=== PATIENT | male | born 1945 | race Caucasian/White ===

== ENCOUNTER 2018-12-28 18:24 | Inpatient (IN) | payer OTHER ==
--- OUTSIDE RECORDS SUMMARY | 2018-12-28 18:27 | XMS REPORT | Clinical Summary ---
:1945 Author Organization [facility] Address [address] [place] [address] Care Team Providers Name Role Phone Abram Gutierrez MD Primary Care Provider Allergies Active Allergy Reactions Severity Noted Date Comments Prednisone 11/29/2017 Medications Medication Sig Dispensed Refills Start Date End Date Status citalopram (CeleXA) Take 40 mg by 0 Active 40 MG tablet mouth daily. metroNIDAZOLE Apply topically 0 Active (METROCREAM) 0.75 % 2 (two) times a cream day. fluocinonide Apply topically 0 Active (LIDEX) 0.05 % 2 (two) times a cream day. cycloSPORINE 1 drop 2 (two) 0 Active (RESTASIS) 0.05 % times a day. ophthalmic emulsion artificial 1 drop 2 (two) 0 Active tears,hypromellose, times a day. (SYSTANE GEL) 0.3 % gel bimatoprost Administer 1 0 Active (LUMIGAN) 0.01 % drop to both ophthalmic drops eyes nightly. aspirin (ECOTRIN) Take 81 mg by 0 Active 81 MG enteric mouth daily. coated tablet vitamin B complex Take 1 tablet 0 Active (SUPER B-50 COMPLEX by mouth ORAL) nightly. calcium Take 2 tablets 0 Active citrate/vitamin D3 by mouth daily. (CITRACAL + D ORAL) polyethylene glycol Take 17 g by 0 Active (MIRALAX) 17 gram mouth daily as packet needed for constipation. fluticasone 2 sprays by 0 Active (FLONASE) 50 Each Nare route mcg/actuation nasal daily. spray tamsulosin (FLOMAX) Take 0.4 mg by 0 Active 0.4 mg mouth daily. capsule,extended release 24hr carbidopa-levodopa Take 1 tablet 90 tablet 6 07/28/2018 Active (SINEMET) 25-100 mg by mouth 3 0 per tablet (three) times a day. carbidopa-levodopa TAKE 1 TABLET 120 tablet 10 09/29/2018 Active (SINEMET CR) 50-200 BY MOUTH 4 mg per CR tablet TIMES A DAY cloZAPine take 2 pills 14 tablet 0 12/09/2018 Active (CLOZARIL) 25 MG qhs-Labs to tablet follow-Results reported to [facility] carbidopa-levodopa Take 1 tablet 0 Discontinued (SINEMET) 25-100 mg by mouth 3 8 per tablet (three) times a day. carbidopa-levodopa Take 1 tablet 120 tablet 11 11/29/2017 Discontinued (SINEMET CR) 50-200 by mouth 4 9 mg per CR tablet (four) times a day. rivastigmine Place 1 patch 30 patch 11 03/28/2018 Discontinued (EXELON) 4.6 mg/24 on the skin [address] 1 patch 30 patch 11 03/28/2018 Discontinued (EXELON) 9.5 mg/24 on the skin 9 hr daily. donepezil (ARICEPT) Take 1 po qD 60 tablet 11 06/17/2018 Discontinued 5 MG tablet for 2 weeks, 9 then 2 po qD cloZAPine take 1.5 pills 11 tablet 0 08/29/2018 Discontinued (CLOZARIL) 25 MG qhs 9 tablet cloZAPine take 1.5 pills 11 tablet 0 09/06/2018 Discontinued (CLOZARIL) 25 MG qhs-Labs to 9 tablet follow cloZAPine take 1.5 pills 11 tablet 0 09/21/2018 Discontinued (CLOZARIL) 25 MG qhs-Labs to 9 tablet follow cloZAPine take 1.5 pills 11 tablet 0 10/13/2018 Discontinued (CLOZARIL) 25 MG qhs-Labs to 9 tablet follow-Results reported to [facility] cloZAPine take 1.5 pills 11 tablet 0 10/18/2018 Discontinued (CLOZARIL) 25 MG qhs-Labs to 9 tablet follow-Results reported to [facility] cloZAPine take 2 pills 14 tablet 0 10/31/2018 Discontinued (CLOZARIL) 25 MG qhs-Labs to 9 tablet follow-Results reported to [facility] cloZAPine take 2 pills 14 tablet 0 11/09/2018 Discontinued (CLOZARIL) 25 MG qhs-Labs to 9 tablet follow-Results reported to [facility] Active Problems No known active problems Encounters Date Type Specialty Care Team Description 12/19/2018 Telephone Neurology Jerel Ventura MD 12/09/2018 Refill Neurology Jenn Martins MA 12/08/2018 Telephone Neurology Jerel Ventura MD 11/24/2018 Orders Only Neurology Jerel Ventura MD 11/09/2018 Refill Neurology Jerel Ventura MD 10/31/2018 Telephone Neurology Jerel Ventura MD 10/19/2018 Telephone Neurology Jerel Ventura MD 10/18/2018 Refill Neurology Jerel Ventura MD 10/13/2018 Refill Neurology Jerel Ventura MD 10/10/2018 Telephone Neurology Jerel Ventura MD 09/29/2018 Refill Neurology Jerel Ventura MD 09/21/2018 Refill Neurology Jerel Ventura MD 09/20/2018 Telephone Neurology Jerel Ventura MD 09/06/2018 Telephone Neurology Jerel Ventura MD 08/29/2018 Office Visit Neurology Jerel Ventura, 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) (Primary Dx); Hallucinations, visual 07/28/2018 Refill Neurology Jenn Martins MA 07/14/2018 Telephone Neurology Jerel Ventura MD 07/08/2018 Telephone Neurology Jerel Ventura MD 06/17/2018 Orders Only Neurology Jerel Ventura MD 06/16/2018 Telephone Neurology Jerel Ventura MD 06/06/2018 Telephone Neurology Jerel Ventura MD 03/28/2018 Office Visit Neurology eJrel Ventura, Dementia due to Parkinson's disease without behavioral disturbance (HCC) (Primary Dx); Autonomic orthostatic hypotension; Hallucinations after 12/27/2017 Family History Medical History Relation Name Comments Diabetes Father Heart disease Father Throat cancer Mother Relation Name Status Comments Father Mother Social History Tobacco Use Types Packs/Day Years Used Date Former Smoker Smokeless Tobacco: Never Used Alcohol Use Drinks/Week oz/Week Comments No Sex Assigned at Date Recorded Not on file Job Start Date Occupation Industry Not on file Not on file Not on file Travel History Travel Start Travel End No recent travel history available. Last Filed Vital Signs Vital Sign Reading Time Taken Blood Pressure 108/65 08/29/2018 10:49 AM CDT Pulse 60 08/29/2018 10:49 AM CDT Temperature - - Respiratory Rate - - Oxygen Saturation - - Inhaled Oxygen Concentration - - Weight 70.3 kg (155 lb) 08/29/2018 10:45 AM CDT Height 177.8 cm (5' 10") 03/28/2018 2:00 PM CDT Body Mass Index 22.24 03/28/2018 2:00 PM CDT Plan of Treatment Health Maintenance Due Date Last Done Comments COLONOSCOPY SCREENING 1994 SHINGLES VACCINES (#1) 1994 65+ PNEUMOCOCCAL VACCINE (1 of 2 - PCV13) 2009 INFLUENZA VACCINE 12/29/2018 Procedures Procedure Name Priority Date/Time Associated Diagnosis Comments CBC WITH PLATELET AND DIFFERENTIAL Routine 11/22/2018 after 12/27/2017 Results CBC with platelet and differential (11/22/2018) Specimen Blood Narrative Performed At after 12/27/2017 Advance Directives Patient has advance care planning documents on file. For more information, please contact:[place] [address]
[2018-12-28] MEDS ORDERED: RSI MEDICATION KIT IV ONE (18:41)
[2018-12-28] MEDS ORDERED: MIDAZOLAM HCL 2 MG/2 ML INJ ONE (18:56)
[2018-12-28] MEDS ORDERED: PROPOFOL 1,000 MG/100 ML VIAL IV ONE (18:57)
--- NOTE | 2018-12-28 19:03 | RAD REPORT ---
EXAM DESCRIPTION: RAD - Chest Single View - 12/28/2018 6:50 pm CLINICAL HISTORY: post intubation Chest pain. COMPARISON: Chest Pa And Lat (2 Views) dated 06/17/2016; Chest Pa And Lat (2 Views) dated 01/27/2016 FINDINGS: Portable technique limits examination quality. Tip of the ET tube is above the leighann. Enteric tube descends into the stomach. Emphysematous changes are seen with bibasilar lung opacities, greater on the right and a small to moderate right pleural e ffusion. Pneumonia would be the most likely etiology although mass cannot be ruled out.
[2018-12-28] MEDS ORDERED: NA CHLORIDE 0.9% 1,000 ML ONE (19:11)
[2018-12-28 19:24] LABS: Absolute Lymphocytes (CBC) 0.3 K/uL (0.7-4.9); Basophils % 0.3 % (0-1.3); Hematocrit 45.5 % (39.6-49.0); Lymphocytes % 6.4 % (15.3-44.8); MPV 9.6 fL (7.6-11.3); RBC Red Blood Cell Count 4.74 M/uL (4.33-5.43)
[2018-12-28 19:24] LABS: Urine Blood 1+ (NEG); Urine Glucose NEGATIVE (NEG); Urine Protein 1+ (NEG); Urine pH 6.5 (5.0-7.0)
[2018-12-28 19:31] LABS: Protime INR 1.3
[2018-12-28] MEDS ORDERED: Levofloxacin 750mg IV 750 MG/150 ML BAG IV ONE (19:37)
[2018-12-28] MEDS ORDERED: D5.45NS W/KCL 20MEQ 1,000 ML IV ONE (19:37)
[2018-12-28] MEDS ORDERED: CEFEPIME 1 GM/100 ML BAG IV ONE (19:38)
[2018-12-28] MEDS ORDERED: ACETAMINOPHEN 650MG/RECT SUPP PR ONE (19:40)
[2018-12-28 19:47] LABS: Albumin 2.9 g/dL (3.4-5.0); Bilirubin Direct 0.4 mg/dL (0-0.2); Bilirubin Total 0.9 mg/dL (0.2-1.0); Magnesium 2.6 mg/dL (1.8-2.4); Potassium 4.2 mmol/L (3.5-5.1); Protein, Total 6.9 g/dL (6.4-8.2); Troponin (Emerg Dept Use Only) 0.2 ng/mL (0.0-0.045)
--- NOTE | 2018-12-28 19:48 | RAD REPORT ---
EXAM DESCRIPTION: CT - Head Brain Wo Cont - 12/28/2018 7:40 pm CLINICAL HISTORY: unresponsive Headache, drowsiness COMPARISON: Sinus Wo Cont dated 02/12/2016 TECHNIQUE: All CT scans are performed using dose optimization technique as appropriate and may inclu de automated exposure control or mA/KV adjustment according to patient size. FINDINGS: No intracranial hemorrhage, hydrocephalus or extra-axial fluid collection.Prominent genera lized brain atrophy is present with mild periventricular and deep white matter chronic microvascular ischemic changes.No areas of brain edema or evidence of midline shift. The paranasal sinuses and mastoids are clear. The calvarium is intact. IMPRESSION: No acute intracranial abnormality.
--- NOTE | 2018-12-28 19:52 | RAD REPORT ---
EXAM DESCRIPTION: CT - Chest Abd Pelvis Wo Con - 12/28/2018 7:40 pm CLINICAL HISTORY: Chest and abdomen pain. unresponsive, GCS3 COMPARISON: No comparisons TECHNIQUE: A limited noncontrast study was performed. All CT scans are performed using dose optimization technique as appropriate and may include automated exposure control or mA/KV adjustment according to patient size. FINDINGS: Emphysematous changes are present throughout the lungs. ET tube tip is above the leighann. E nteric tube descends into the stomach.Airspace opacities are present in both posterior lower lobes as well as the inferior right middle lobe having the appearance of infiltrate/pneumonia.Small right ple ural effusion is seen.No intrathoracic adenopathy. Noncontrast imaging of the liver demonstrates no focal mass or biliary dilatation. The spleen, pancre as and adrenal glands are normal. Small bilateral renal stones are present. No bowel obstruction, free air, free fluid or abscess. Heavy aortoiliac atherosclerosis. The appendix is not identified as a discrete structure, however, no secondary findings of appendicitis are identi fied. No pathologic lymphadenopathy in the abdomen or pelvis. No acute fracture demonstrated. IMPRESSION: Moderate bibasilar lung consolidation is seen, greater on the right, most likely represe nting pneumonia. Endotracheal intubation with tip above the leighann. Small bilateral renal calculi without significant hydronephrosis.
[2018-12-28 19:58] LABS: Urine Culture Reflex Order NOT NEEDED
[2018-12-28 20:00] LABS: Urine Bacteria <20 /HPF (NONE SEEN); Urine Mucus 1+ /HPF (NONE SEEN)
--- NOTE | 2018-12-28 20:29 | EDPHYS ---
Physician Documentation [facility] Name: Jose Nuno Age: 73 yrs Sex: Male : 1945 Arrival Date: 12/28/2018 Time: 18:26 Bed 3 Private MD: ED Physician Oracio Sanchez HPI: 12/28 18:54 This 73 yrs old Male presents to ER via Unassigned with complaints of rn unresponsive. 18:54 Unable to obtain HPI due to obtunded state. Per EMS, called out for unresponsiveness, rn per report, recently taken off of hospice, no other history given. Never did anything purposeful for EMS.. Historical: - Allergies: 19:01 No Known Allergies; ss - Home Meds: 19:01 unknown thrush medication [Active]; ss - PMHx: 19:01 Parkinsons; thrush; Hypertension; prostate CA; BPH; ss - PSHx: 19:01 Stents to bilateral lower extremities; ss - Immunization history:: Adult Immunizations up to date. - Social history:: Smoking status: Patient/guardian denies using tobacco, the patient reports quitting approximately 40 years ago. - Ebola Screening: : Patient denies exposure to infectious person Patient denies travel to an Ebola-affected area in the 21 days before illness onset. - Unable to obtain history due to: obtunded state. ROS: 18:54 Unable to obtain ROS due to obtunded state. rn Exam: 18:54 Constitutional: THin male, GCS 3 with respiratory distress Head/Face: Normocephalic, rn atraumatic. ENT: dry MM with thick posterior oral secretions Neck: Trachea midline, no thyromegaly or masses palpated, and no cervical lymphadenopathy. Supple, full range of motion without nuchal rigidity, or vertebral point tenderness. No Meningismus. Cardiovascular: tachycardic, regular, no murmur Respiratory: + tachypnea with coarse bilateral breath sounds Abdomen/GI: scaphoid abdomen, non-tender Skin: Warm, dry Neuro: GCS 3, some movement of extremities but random Vital Signs: 18:24 BP 132 / 68; Pulse 115; Resp 28; Pulse Ox 88% on BVM; Weight 70 kg; Pain 0/10; sv 18:35 BP 209 / 88; Pulse 118; Resp 22; Pulse Ox 97% on ETT ambu; sv 18:45 BP 155 / 82; Pulse 118; Resp 50; Pulse Ox 99% on ETT ambu; sv 18:55 BP 175 / 85; Pulse 127; Resp 44; Pulse Ox 96% on 40% FiO2 ETT vent; sv 19:01 Weight 63.5 kg; Height 5 ft. 10 in. (177.80 cm); ss 19:02 Temp 103.5(R); ss 19:05 BP 154 / 81; Pulse 124; Resp 42; Pulse Ox 96% on 40% FiO2 ETT vent; sv 19:10 BP 157 / 79; Pulse 121; Resp 41; Pulse Ox 95% on 40% FiO2 ETT vent; sv 19:15 BP 173 / 65; Pulse 121; Resp 36; Pulse Ox 98% on 40% FiO2 ETT vent; sv 20:02 BP 174 / 70; Pulse 122; Resp 35 A; Pulse Ox 97% on 50% FiO2 ETT vent; jd3 20:51 BP 135 / 74; Pulse 126; Resp 34 A; Temp 100.1; Pulse Ox 97% on 50% FiO2 ETT vent; jd3 21:37 BP 110 / 59; Pulse 121; Resp 33 A; Temp 99.5; Pulse Ox 97% on 50% FiO2 ETT vent; jd3 19:01 Body Mass Index 20.09 (63.50 kg, 177.80 cm) Procedures: 18:57 Intubation: Ventilated with 100% NRB prior to procedure. O2 saturation prior to furniture technician was 61 %. Intubated orally using # 4 Stella blade with 7.5 mm ETT. was successful on first attempt. Ventilated with Ambu bag. Cricoid pressure applied during procedure. Tube secured with ETT zamora at right side of mouth measured 23 cm at gum. Placement verified by CXR, auscultating bilateral breath sounds, O2 saturation after procedure was 97 %. Patient tolerated well. Central Line: the site was prepped with Betadine, in sterile fashion, a triple lumen catheter was inserted, in the right femoral vein, in 1 attempts. placement was verified, by blood return, the site was dressed with Tegaderm, using sterile technique, the patient tolerated the procedure, well. MDM: 18:36 Patient medically screened. rn 20:34 Data reviewed: vital signs, nurses notes, lab test result(s), EKG, radiologic studies, devin CT scan, plain films. 12/28 18:37 Order name: ABG rn 12/28 18:37 Order name: Blood Culture Adult (2) rn 12/28 18:37 Order name: BMP; Complete Time: 20: rn 12/28 18:37 Order name: CBC with Diff; Complete Time: 20: rn 12/28 18:37 Order name: Hepatic Function; Complete Time: 20: rn 12/28 18:37 Order name: Lipase; Complete Time: 20: rn 12/28 18:37 Order name: Magnesium; Complete Time: 20: rn 12/28 18:37 Order name: NT PRO-BNP; Complete Time: 20: rn 12/28 18:37 Order name: PT-INR; Complete Time: 20: rn 12/28 18:37 Order name: Ptt, Activated; Complete Time: 20: rn 12/28 18:37 Order name: Troponin (emerg Dept Use Only); Complete Time: 20: rn 12/28 18:37 Order name: Procalcitonin; Complete Time: 20: rn 12/28 18:37 Order name: Lactate; Complete Time: 20: rn 12/28 18:38 Order name: Urine Culture 12/28 18:36 Order name: XRAY Chest (1 view); Complete Time: 20: rn 12/28 18:37 Order name: EKG; Complete Time: 18:38 rn 12/28 18:37 Order name: CT Head Brain wo Cont; Complete Time: 20: rn 12/28 18:38 Order name: CT Chest Abdomen Pelvis W/O Contrast; Complete Time: 20: rn 12/28 18:38 Order name: Urine Microscopic Only; Complete Time: 20: rn 12/28 18:44 Order name: Urine Dipstick--Ancillary (enter results); Complete Time: 20:22 12/28 20:43 Order name: CONS Physician Consult EDID 12/28 18:37 Order name: Cardiac monitoring; Complete Time: 19:18 rn 12/28 18:37 Order name: EKG - Nurse/Tech; Complete Time: 19:18 rn 12/28 18:37 Order name: IV Saline Lock; Complete Time: 19:18 rn 12/28 18:37 Order name: Labs collected and sent; Complete Time: 19:18 rn 12/28 18:37 Order name: O2 Per Protocol; Complete Time: 19:18 rn 12/28 18:37 Order name: O2 Sat Monitoring; Complete Time: 19: rn 12/28 18:38 Order name: Urine Dipstick-Ancillary (obtain specimen); Complete Time: 19: rn Administered Medications: 18:28 Drug: Etomidate 20 mg Route: IVP; Site: left hand; sv 18:45 Follow up: Response: No adverse reaction sv 18:28 Drug: Succinylcholine 80 mg Route: IVP; Site: left hand; sv 18:45 Follow up: Response: No adverse reaction sv 18:55 Drug: NS 0.9% 500 ml Route: IV; Rate: bolus; Site: right femoral; sv 19:30 Follow up: Response: No adverse reaction; IV Status: Completed infusion jd3 19:00 Drug: Propofol 5 mcg/kg/min {Note: medication infusing upon night auditor nurse's jd3 arrival.} Route: IV; Rate: calculated rate; Site: right femoral; 21:45 Follow up: Response: No adverse reaction; IV Status: Infusion continued upon admission jd3 19:30 Drug: Tylenol Suppository 650 mg Route: MA; jd3 20:30 Follow up: Response: No adverse reaction jd3 20:00 Drug: D5-1/2 NS with KCl 20 mEq/L 1000 ml Route: IV; Rate: 100 ml/hr; Site: right jd3 femoral; 21:38 Follow up: Response: No adverse reaction; IV Status: Infusion continued upon admission jd3 20:01 Drug: Cefepime 1 grams Route: IVPB; Rate: 200 ml/hr; Infused Over: 30 mins; Site: right jd3 femoral; 21:38 Follow up: Response: No adverse reaction; IV Status: Completed infusion jd3 20:01 Drug: LevaQUIN 750 mg Volume: 150 ml; Route: IVPB; Infused Over: 90 mins; Site: left jd3 hand; 21:38 Follow up: Response: No adverse reaction; IV Status: Completed infusion jd3 20:46 Drug: Zosyn 3.375 grams Route: IVPB; Infused Over: 60 mins; Site: right femoral; jd3 21:38 Follow up: Response: No adverse reaction; IV Status: Infusion continued upon admission jd3 Point of Care Testing: Blood Glucose: 18:30 Blood Glucose: 164 mg/dL; sv Ranges: Critical Glucose Levels:Adult <50 mg/dl or >400 mg/dl <40 mg/dl or >180 mg/dl Disposition: 12/28/18 20:28 Hospitalization ordered by Abram Gutierrez for Inpatient Admission. Preliminary diagnosis are Fever, unspecified, Pneumonia due to other specified bacteria - bilateral aspiration, Dehydration, Parkinson's disease, Respiratory failure, unspecified. - Bed requested for Intensive Care Unit. - Status is Inpatient Admission. jd3 - Condition is Serious. - Problem is new. - Symptoms have improved. UTI on Admission? No Signatures: Dispatcher [employer] EDMS Sue Estrella, RN RN Oracio Davis MD MD cha Nieto, Roman, MD MD rn Smirch, Shelby, RN RN ss Davies, Jonathon, RN RN jEdgar Mckeon RN RN mg2 Corrections: (The following items were deleted from the chart) 20:39 20:28 Hospitalization Ordered by Abram Gutierrez MD for Inpatient Admission. Preliminary mg2 diagnosis is Fever, unspecified; Pneumonia due to other specified bacteria - bilateral aspiration; Dehydration; Parkinson's disease; Respiratory failure, unspecified. Bed requested for Telemetry/MedSurg (Inpatient). Status is Inpatient Admission. Condition is Serious. Problem is new. Symptoms have improved. UTI on Admission? No. devin 22:11 20:39 12/28/2018 20:28 Hospitalization Ordered by Abram Gutierrez MD for Inpatient jd3 Admission. Preliminary diagnosis is Fever, unspecified; Pneumonia due to other specified bacteria - bilateral aspiration; Dehydration; Parkinson's disease; Respiratory failure, unspecified. Bed requested for Intensive Care Unit. Status is Inpatient Admission. Condition is Serious. Problem is new. Symptoms have improved. UTI on Admission? No. mg2
--- NOTE | 2018-12-28 20:29 | ER ---
Nurse's Notes [facility] Name: Jose Nuno Age: 73 yrs Sex: Male : 1945 Arrival Date: 12/28/2018 Time: 18:26 Bed 3 Private MD: Diagnosis: Fever, unspecified;Pneumonia due to other specified bacteria-bilateral aspiration;Dehydration;Parkinson's disease;Respiratory failure, unspecified Presentation: 12/28 18:21 Presenting complaint: Presenting complaint: EMS states: called out for pt being less sv responsive, dyspnea since this morning. +gag reflex, BP 139/62 HR-30s, ETCO2-26, with assisted ventilations. 22G left hand. Pt was on hospice for being non-ambulatory. but was revoked 2 days ago by family. Full code. Transition of care: patient was not received from another setting of care. Onset of symptoms was December 28, 2018. Risk Assessment: Do you want to hurt yourself or someone else? Unable to obtain. Initial Sepsis Screen: Does the patient meet any 2 criteria? RR > 20 per min. Altered Mental Status. HR > 90 bpm. Yes Does the patient have a suspected source of infection? No. Patient's initial sepsis screen is negative. Care prior to arrival: Assisted ventilation, Medication(s) given: Albuterol Neb x 1, Atrovent Neb x 1. 18:21 Acuity: NOEMY 1 sv 18:21 Method Of Arrival: EMS: [facility] sv 18:54 Transition of care: patient was not received from another setting of care. Onset of ph symptoms was December 28, 2018. Risk Assessment: Do you want to hurt yourself or someone else? Patient reports no desire to harm self or others. Initial Sepsis Screen: Does the patient meet any 2 criteria? Altered Mental Status. HR > 90 bpm. Yes Does the patient have a suspected source of infection? Yes:. 18:54 Acuity: NOEMY 1 ph Triage Assessment: 18:21 General: Appears distressed, ill, unkempt, emaciated, malnourished, Behavior is sv unresponsive. Pain: Unable to use pain scale. Does not appear to understand pain scale. Neuro: Level of Consciousness is obtunded, unresponsive, Oriented to none. Cardiovascular: Rhythm is sinus tachycardia. Respiratory: Airway is patent assisted ventilations Respiratory effort is even, Respiratory pattern is tachypnea Onset: The symptoms/episode began/occurred this morning, the patient has severe shortness of breath. GI: Abdomen is flat, non-distended. Derm: Skin is pale. 19:00 Respiratory: Reports shortness of breath. jd3 Historical: - Allergies: 19:01 No Known Allergies; ss - Home Meds: 19:01 unknown thrush medication [Active]; ss - PMHx: 19:01 Parkinsons; thrush; Hypertension; prostate CA; BPH; ss - PSHx: 19:01 Stents to bilateral lower extremities; ss - Immunization history:: Adult Immunizations up to date. - Social history:: Smoking status: Patient/guardian denies using tobacco, the patient reports quitting approximately 40 years ago. - Ebola Screening: : Patient denies exposure to infectious person Patient denies travel to an Ebola-affected area in the 21 days before illness onset. - Unable to obtain history due to: obtunded state. Screenin:48 Abuse screen: no sings of abuse noted. Nutritional screening: No deficits noted. jd3 Tuberculosis screening: No symptoms or risk factors identified. Fall Risk Secondary diagnosis (15 points) impaired mobility, IV access (20 points). Total Ramirez Fall Scale indicates Low Risk Score (25-44 pts). Fall prevention measures have been instituted. Side Rails Up X 2 Placed close to Nursing Station Frequent Obs/Assesments occuring. Assessment: 19:15 General: Appears ill, slender, Behavior is unresponsive. pt on sedation. Pain: Unable jd3 to use pain scale. Patient is intubated. Neuro: Level of Consciousness is unresponsive, Oriented to none. Cardiovascular: Heart tones S1 S2 present Capillary refill < 3 seconds Rhythm is sinus tachycardia. Respiratory: Airway via oral intubation Breath sounds are diminished bilaterally. GI: Abdomen is flat, non-distended, Bowel sounds present X 4 quads. Abd is soft X 4 quads. : Thakkar in place to gravity drainage. EENT: No signs and/or symptoms were reported regarding the EENT system. Derm: Skin is intact, Skin is dry, Skin is normal, Skin temperature is warm. 20:14 Reassessment: Patient and/or family updated on plan of care and expected duration. Pain jd3 level reassessed. pt orally intubated, IV's with medication infusing freely at ordered rates, no redness or swelling noted to IV sites. Thakkar in place to gravity drainage. pt with no apparent distress at this time. 20:50 Reassessment: No changes from previously documented assessment. Patient and/or family domenica updated on plan of care and expected duration. Pain level reassessed. 21:31 Reassessment: No changes from previously documented assessment. Patient and/or family rosinad3 updated on plan of care and expected duration. Pain level reassessed. pt with IV fluids infusing freely at prescribed rate, with no redness or swelling noted. Thakkar in place to gravity drainage. pt orally intubated, no signs of distress noted at this time. ICU called to give report, bedside report will be given to Bree SCOTT. 21:45 Reassessment: bedside report given to Bree SCOTT pt assisted to ICU bed 5 with nurse, domenica cross, and Avelino Respiratory. Vital Signs: 18:24 BP 132 / 68; Pulse 115; Resp 28; Pulse Ox 88% on BVM; Weight 70 kg; Pain 0/10; sv 18:35 BP 209 / 88; Pulse 118; Resp 22; Pulse Ox 97% on ETT ambu; sv 18:45 BP 155 / 82; Pulse 118; Resp 50; Pulse Ox 99% on ETT ambu; sv 18:55 BP 175 / 85; Pulse 127; Resp 44; Pulse Ox 96% on 40% FiO2 ETT vent; sv 19:01 Weight 63.5 kg; Height 5 ft. 10 in. (177.80 cm); ss 19:02 Temp 103.5(R); ss 19:05 BP 154 / 81; Pulse 124; Resp 42; Pulse Ox 96% on 40% FiO2 ETT vent; sv 19:10 BP 157 / 79; Pulse 121; Resp 41; Pulse Ox 95% on 40% FiO2 ETT vent; sv 19:15 BP 173 / 65; Pulse 121; Resp 36; Pulse Ox 98% on 40% FiO2 ETT vent; sv 20:02 BP 174 / 70; Pulse 122; Resp 35 A; Pulse Ox 97% on 50% FiO2 ETT vent; jd3 20:51 BP 135 / 74; Pulse 126; Resp 34 A; Temp 100.1; Pulse Ox 97% on 50% FiO2 ETT vent; jd3 21:37 BP 110 / 59; Pulse 121; Resp 33 A; Temp 99.5; Pulse Ox 97% on 50% FiO2 ETT vent; jd3 19:01 Body Mass Index 20.09 (63.50 kg, 177.80 cm) ED Course: 18:21 shelter monitor on. Pulse ox on. NIBP on. sv 18:21 Maintain EMS IV. Dressing intact. Site clean \T\ dry. Gauge \T\ site: 22G left hand. sv 18:26 Patient arrived in ED. sv 18:28 Inserted saline lock: 22 gauge in left upper arm, using aseptic technique. ,using sv aseptic technique. done by Tereso Li nanotechnology technician. 18:33 Assisted provider with intubation using 7.5 mm ETT via oral route. ET tube secured at sv 23cm at the gums. Set up intubation tray. Intubated by Michael Lovell MD Placement verified by CXR, CO2 detector w/ + color change, auscultating bilateral breath sounds, Patient tolerated well. 18:36 Michael Lovell MD is Attending Physician. rn 18:37 Thakkar cath inserted, using sterile technique, 16 Fr., by dial maker, balloon inflated, to sv gravity drainage, returned taz urine. Patient tolerated well. NGT: inserted 18 Fr. other OGT verified placement of air over stomach, verified return of gastric contents, to intermittent suction. Returned gastric contents. Patient tolerated poorly. 18:40 Patient has correct armband on for positive identification. Bed in low position. sv 18:45 X-ray(s) taken. sv 18:45 Initial lab(s) drawn, by ED staff, sent to lab. First set of blood cultures drawn by ED sv staff. 18:50 Assisted provider with central line placement. Set up central line tray. Triple lumen sv line placed in right femoral. Line placed by Michael Lovell MD Placement verified by blood return, Dressed with Tegaderm, Blood was collected. Patient tolerated well. Before procedure, did Practitioner(s) obtain informed consent? No. Patient \T\ family education about procedure, CLABSI prevention and S/S of infection? No. Time-out/Briefing performed prior to start of procedure? Yes. Was handwashing/sanitizing done immediately prior to procedure? Yes. Was patient positioned to in a way to prevent air embolism? Yes. Was procedure site sterilized? Yes, with chlorhexidine. Was the site allowed to dry? Yes. Was local anesthetic and/or sedation utilized? Yes. During the procedure, did the Practitioner(s) maintain a sterile field? Yes. Were unused ports clamped during insertion? Yes. Was a 2nd qualified MD obtained after 3 unsuccessful insertion attempts? Yes. Was blood aspirated from each lumen? Yes. After the procedure, did the Practitioner(s) clean the site and apply a sterile dressing? Yes. 18:52 XRAY Chest (1 view) In Process Unspecified. EDMS 19:00 Report given to Taz SCOTT and Carlo SCOTT. sv 19:00 Second set of blood cultures drawn by ED staff. sv 19:02 Arm band placed on right wrist. ss 19:07 Triage completed. sv 19:30 Carlo Berry RN is Primary Nurse. jd3 19:37 Attending Physician role handed off by Michael Lovell MD devin 19:37 Oracio Sanchez MD is Attending Physician. devin 19:41 CT Head Brain wo Cont In Process Unspecified. EDMS 19:41 CT Chest Abdomen Pelvis W/O Contrast In Process Unspecified. EDMS 19:51 Notified ED physician of a critical lab result(s). cl of 122. fc 20:24 Abram Gutierrez MD is Hospitalizing Provider. devin 21:30 Patient admitted, IV remains in place. jd3 Administered Medications: 18:28 Drug: Etomidate 20 mg Route: IVP; Site: left hand; sv 18:45 Follow up: Response: No adverse reaction sv 18:28 Drug: Succinylcholine 80 mg Route: IVP; Site: left hand; sv 18:45 Follow up: Response: No adverse reaction sv 18:55 Drug: NS 0.9% 500 ml Route: IV; Rate: bolus; Site: right femoral; sv 19:30 Follow up: Response: No adverse reaction; IV Status: Completed infusion jd3 19:00 Drug: Propofol 5 mcg/kg/min {Note: medication infusing upon security shift manager nurse's jd3 arrival.} Route: IV; Rate: calculated rate; Site: right femoral; 21:45 Follow up: Response: No adverse reaction; IV Status: Infusion continued upon admission jd3 19:30 Drug: Tylenol Suppository 650 mg Route: MO; jd3 20:30 Follow up: Response: No adverse reaction jd3 20:00 Drug: D5-1/2 NS with KCl 20 mEq/L 1000 ml Route: IV; Rate: 100 ml/hr; Site: right jd3 femoral; 21:38 Follow up: Response: No adverse reaction; IV Status: Infusion continued upon admission jd3 20:01 Drug: Cefepime 1 grams Route: IVPB; Rate: 200 ml/hr; Infused Over: 30 mins; Site: right jd3 femoral; 21:38 Follow up: Response: No adverse reaction; IV Status: Completed infusion jd3 20:01 Drug: LevaQUIN 750 mg Volume: 150 ml; Route: IVPB; Infused Over: 90 mins; Site: left jd3 hand; 21:38 Follow up: Response: No adverse reaction; IV Status: Completed infusion jd3 20:46 Drug: Zosyn 3.375 grams Route: IVPB; Infused Over: 60 mins; Site: right femoral; jd3 21:38 Follow up: Response: No adverse reaction; IV Status: Infusion continued upon admission jd3 Point of Care Testing: Blood Glucose: 18:30 Blood Glucose: 164 mg/dL; sv Ranges: Outcome: 20:28 Decision to Hospitalize by Provider. devin 21:26 Admitted to ICU accompanied by nurse, accompanied by tech, via stretcher, room 5, with jd3 oxygen, on monitor, with chart, Report called to bedside report given to Bree SCOTT. 21:26 Condition: stable 21:26 Instructed on the need for admit. 22:11 Patient left the ED. jd3 Signatures: Dispatcher [employer] EDSue Madera RN RN sv Anderson, Corey, MD MD cha Chretien, Felicia RN Michael Stubbs ph D, MD MD rn Smirch, Shelby, RN RN ss Hall, Patricia, RN RNavies, Jonathon, RN RN jd3 Corrections: (The following items were deleted from the chart) 19:12 18:21 Presenting complaint: sv sv 20:17 20:03 General: Appears ill, slender, Behavior is unresponsive. pt on sedation. jd3 jd3 20:17 20:03 Pain: Unable to use pain scale. Patient is intubated. jd3 jd3 20:17 20:03 Neuro: Level of Consciousness is unresponsive, Oriented to none jd3 jd3 20:17 20:03 Cardiovascular: Heart tones S1 S2 present Capillary refill < 3 seconds Rhythm is jd3 sinus tachycardia [facility] 20:03 Respiratory: Airway via oral intubation Breath sounds are diminished bilaterally. [place] [id number] 20:03 GI: Abdomen is flat, non-distended, Bowel sounds present X 4 quads. Abd is soft X jd3 4 quads [facility] : 20:03 : Thakkar in place to gravity drainage [facility] 20:03 EENT: No signs and/or symptoms were reported regarding the EENT system. [place] [id number] 20:03 Derm: Skin is intact, Skin is dry, Skin is normal, Skin temperature is warm [place] [id number] 20: 20:14 Reassessment: No changes from previously documented assessment. Patient and/or jd3 family updated on plan of care and expected duration. Pain level reassessed. pt orally intubated, IV's with medication infusing freely at ordered rates, no redness or swelling noted to IV sites. Thakkar in place to gravity drainage. pt with no apparent distress at this time. jd3
[2018-12-28] MEDS ORDERED: PIPER/TAZO/NS 3.375gm 3.375 GM/100 ML BAG ONE (20:54)
[2018-12-28] MEDS ORDERED: PROPOFOL 1,000 MG/100 ML VIAL IV PRN (22:53)
[2018-12-28] MEDS ORDERED: ONDANSETRON 4 MG/2 ML VIAL IV PRN (22:53)
[2018-12-28] MEDS ORDERED: IPRATROPIUM BROM 0.5MG/2.5ML NEB PRN (22:53)
[2018-12-28] MEDS ORDERED: ALBUTEROL 2.5 MG/3 ML NEB SOL NEB PRN (22:53)
[2018-12-28] MEDS ORDERED: ACETAMINOPHEN 500 MG TAB PO PRN (22:53)
[2018-12-28] MEDS ORDERED: NA CHLORIDE 0.9% 1,000 ML IV ONE (23:05)
[2018-12-29] MEDS: FAMOTIDINE 20 MG/2 ML VIAL IV SCH ×2 (01:00→08:24)
[2018-12-29] MEDS: NA CHLORIDE 0.9% 1,000 ML IV SCH ×2 (01:24→06:53)
[2018-12-29] MEDS: PIPER/TAZO/NS 3.375gm 3.375 GM/100 ML BAG IVPB SCH ×3 (01:25→18:49)
[2018-12-29] MEDS ORDERED: PIPERACIL/TAZO 3.375 GM VIAL IV ONE (01:34)
[2018-12-29] MEDS ORDERED: NA CHLORIDE 0.9% 200 ML ONE (01:34)
[2018-12-29 05:53] LABS: Absolute Lymphocytes (CBC) 0.3 K/uL (0.7-4.9); Basophils % 0.2 % (0-1.3); Hematocrit 35.3 % (39.6-49.0); Lymphocytes % 3.5 % (15.3-44.8); MPV 9.6 fL (7.6-11.3); RBC Red Blood Cell Count 3.66 M/uL (4.33-5.43)
[2018-12-29 06:27] LABS: Potassium 4.1 mmol/L (3.5-5.1)
[2018-12-29 06:48] LABS: Blood Morphology Comment NOT SEEN (NOT SEEN); Platelet Estimate DECR; Urine White Blood Cell Casts OK
--- NOTE | 2018-12-29 07:10 | RAD REPORT ---
EXAM DESCRIPTION: RAD - Chest Single View - 12/29/2018 6:34 am CLINICAL HISTORY: Pneumonia COMPARISON: Portable December 28, CT chest December 28 TECHNIQUE: AP portable chest image was obtained 0630 hours . FINDINGS: Endotracheal tube tip remains in good position mid aortic arch level. NG tube is in place extending below the diaphragm, off the field of view. Resuscitation paddles overlie the upper right c hest and lower lateral left chest. Flattened diaphragm with bilateral costophrenic angle blunting noted. Right base opacification is sti ll present. Pattern is not substantially different when adjusting for technique differences. Less pro nounced medial left base opacification also present and stable. No new or progressive lung parenchyma l process. Heart and vasculature are normal. No pneumothorax. Right costophrenic angle has not changed. No acut e bony abnormality seen. No acute aortic findings suspected. IMPRESSION: Bilateral right greater than left lung parenchymal opacification most likely pneumonia. Pattern is stable from the prior day study. Endotracheal tube and nasogastric tube are in good position.
--- NOTE | 2018-12-29 07:36 | EKG ---
Test Date: 2018-12-28 Test Time: 18:48:44 Voice Instructor: MORGAN MEASUREMENT RESULTS: Intervals: Rate: 126 LA: 122 QRSD: 84 QT: 342 QTc: 495 [place]: P: 81 LA: 122 QRS: -78 T: 72 INTERPRETIVE STATEMENTS: Sinus tachycardia Left axis deviation Abnormal ECG Compared to ECG 02/21/2015 11:58:41 Left-axis deviation now present Sinus bradycardia no longer present Electronically Signed On 12-29-18 07:35:18 CDT by Lawrence Butler
[2018-12-29] MEDS ORDERED: D5W 1,000 ML IV SCH (08:00)
[2018-12-29] MEDS: D5W 1,000 ML IV SCH ×2 (08:23→18:50)
[2018-12-29] MEDS ORDERED: Pharmacy Consult 1 EA XX PRN (08:29)
--- NOTE | 2018-12-29 08:32 | P.CNS ---
Date of Consult: 12/29/18 Reason for Consult: Respiratory failure Chief Complaint: Respiratory failure unresponsive History of Present Illness: Patient is 73 years of age with end-stage Parkinson's disease he was in hospice care and was revoked patient was admitted with respiratory failure intubated he is currently has bilateral pneumonia left worse than right patient is also hypernatremic on a ventilator currently he is very debilitated baseline Allergies prednisone Adverse Reaction (Verified 02/21/15 11:53) JITTERY - Past Medical/Surgical History -: parkinsons -: thrush -: hypertension -: prostate CA -: BPH -: Stents to bilateral lower extremities - Social History Place of Residence: Home Review of Systems is unable to be obtained Physical Examination Temp Pulse Resp BP Pulse Ox 97.7 F 87 19 151/63 H 100 12/29/18 06:00 12/29/18 06:00 12/29/18 06:00 12/29/18 06:00 12/29/18 06:00 General: Unresponsive Respiratory: Clear to auscultation bilaterally Cardiovascular: No edema, Normal S1 S2 Capillary refill: >2 Seconds Gastrointestinal: Soft and benign Integumentary: No cyanosis, Other (Patient has multiple decubitus ulcers) Laboratory Data (last 24 hrs) 12/28/18 19:00: PT 15.2 H, INR 1.30, APTT 26.1 12/28/18 19:00: WBC 5.1, Hgb 14.9, Hct 45.5, Plt Count 158 12/28/18 19:00: Sodium 155 H, Potassium 4.2, BUN 39 H, Creatinine 1.17, Glucose 129 H, Magnesium 2.6 H, Total Bilirubin 0.9, AST 38 H, ALT 48, Alkaline Phosphatase 94, Lipase 146 - Problems (1) Respiratory failure Current Visit: Yes Status: Acute Plan: Patient is 73 years of age and stage Parkinson's disease was in hospice care admitted with respiratory failure he is currently hypernatremic bilateral pneumonia speech cultures are pending start tube feeds correct hypernatremia with D5 water add vancomycin risk for Mr AGUSTIN is requiring minimal oxygen wean off propofol possibly wean and extubate tomorrow once is hypernatremia is corrected Qualifiers: Chronicity: acute
[2018-12-29] MEDS: LORazepam 2 MG/ML VIAL IV PRN ×3 (08:37→18:50)
--- NOTE | 2018-12-29 08:46 | EKG ---
Test Date: 2018-12-29 Test Time: 08:05:53 External Grinder Tender: JANES MEASUREMENT RESULTS: Intervals: Rate: 84 MO: 132 QRSD: 88 QT: 372 QTc: 439 Ivor: P: 78 MO: 132 QRS: -38 T: 46 INTERPRETIVE STATEMENTS: Sinus rhythm with premature atrial complexes Left axis deviation Abnormal ECG Compared to ECG 12/28/2018 18:48:44 Atrial premature complex(es) now present Sinus tachycardia no longer present Electronically Signed On 12-29-18 08:46:19 CDT by Ronan Fajardo
[2018-12-29] MEDS ORDERED: JEVITY 1.2 CAL LIQUID 1,000 ML BOT RTH SCH (09:00)
[2018-12-29] MEDS: VANCOMYCIN/NS 1 gm 1 GM/250 ML BAG IV SCH (09:43)
[2018-12-29] MEDS: ENOXAPARIN 30 MG/0.3 ML SQ SCH (09:44)
--- NOTE | 2018-12-29 13:04 | P.HP ---
Certification for Inpatient Patient admitted to: Inpatient With expected LOS: >2 Midnights Practitioner: I am a practitioner with admitting privileges, knowledge of patient current condition, hospital course, and medical plan of care. Services: Services provided to patient in accordance with Admission requirements found in Title 42 Section 412.3 of the Code of Federal Regulations Patient History Date of Service: 12/29/18 Reason for admission: Respiratory failure unresponsive History of Present Illness: MR. ALFONSO IS END STAGE PARKINSON'S PATIENT WITH SEVERE DEMENTIA AND PREGANGERNOUS HEEL ULCER WAS BROUGHT BY FAMILY FOR DYSPNEA. TWO WEEKS OR SO AGO I HAD PLACED HIM ON HOSPICE I SAW PREGANGRENOUS ULCER COMING UP WITH PVD , WORSE CACHEXIA AND DEMENTIA FROM PARKINSON'S. AT THAT TIME WAS OKAY WITH KEEPING HIM COMFORTABLE AND AVOIDING HEROIC MEASURES. HE STARTED WITH DYSPNEA AND FEVER TWO DAYS AGO, HE WAS GIVEN ORAL ANTIBIOTICS. DAUGHTERS DECIDED TO REVOKE HOSPICE AND BRING HIM TO ER. HE WAS INTUBATED AND HAS ASPIRATION PNEUMONIA. ER GAVE HIM CEFEPIME AND LEVAQUIN. I ASKED DR. FIGUEROA TO GIVE ZOSYN FOR ASPIRATION PNEUMONIA. I SAW HIM THIS AM ABOUT 8. HE IS INTUBATED AND STABLE. Allergies prednisone Adverse Reaction (Verified 02/21/15 11:53) JITTERY Home Medications: Citalopram Hydrobromide [Citalopram HBr] 40 mg PO DAILY 12/29/18 Fluticasone [Flonase 50mcg Nasal [place]] 2 sprays NS DAILY 12/29/18 Nystatin 100,000 unit PO QID 12/29/18 Tamsulosin HCl 1 cap PO BEDTIME 12/29/18 cloZAPine [Clozapine] 25 mg PO BEDTIME 12/29/18 - Past Medical/Surgical History -: parkinsons -: thrush -: hypertension -: prostate CA -: BPH -: Stents to bilateral lower extremities - Social History Smoking Status: Unknown if ever smoked Place of Residence: Home Review of Systems is unable to be obtained Physical Examination - Vital Signs Temperature: 95.8 F Blood Pressure: 119/60 Pulse: 79 Respirations: 18 Pulse Ox (%): 98 - Physical Exam General: Alert, Cachectic, Mild distress, Unresponsive HEENT: Atraumatic, PERRLA, Mucous membr. moist/pink, EOMI, Sclerae nonicteric Neck: Supple, 2+ carotid pulse no bruit, No LAD, Without JVD or thyroid abnormality Respiratory: Diminished Cardiovascular: Regular rate/rhythm, Normal S1 S2 Gastrointestinal: Normal bowel sounds, No tenderness Musculoskeletal: No tenderness Integumentary: No rashes, Pressure ulcer (HEEL WITH GANGRENOUS FEATURES.) Neurological: Normal gait, Normal speech, Normal strength at 5/5 x4 extr, Normal tone, Normal affect Lymphatics: No axilla or inguinal lymphadenopathy - Studies Laboratory Data (last 24 hrs) 12/28/18 19:00: PT 15.2 H, INR 1.30, APTT 26.1 12/28/18 19:00: WBC 5.1, Hgb 14.9, Hct 45.5, Plt Count 158 12/28/18 19:00: Sodium 155 H, Potassium 4.2, BUN 39 H, Creatinine 1.17, Glucose 129 H, Magnesium 2.6 H, Total Bilirubin 0.9, AST 38 H, ALT 48, Alkaline Phosphatase 94, Lipase 146 Assessment and Plan - Problems (Diagnosis) (1) Aspiration pneumonia Current Visit: Yes Status: Acute Plan: IV ZOSYN AND VANCOMYCIN. TALKED TO THIS AM. I EXPLAINED THAT WE WERE TRYING TO PREVENT THE HEROIC MEASURES BUT NOW HE IS IN ICU. SHE UNDERSTANDS. SHE SAYS SHE PANICKED AND SO DID DAUGHTERS. SHE UNDERSTANDS THAT HE IS TERMINAL, AND PATIENTS WHO ARE DYING WILL HAVE SOME ACUTE ILLNESS BEFORE THEY . 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 (3) Atherosclerotic PVD with ulceration Current Visit: Yes Status: Chronic Plan: INOPERABLE. RESUME COMFORT CARE. MEDICALLY UNSTABLE. Qualifiers: Peripheral atherosclerosis location: lower extremity Peripheral atherosclerosis artery type: [place] artery Laterality: unspecified laterality Lower extremity ulceration location: heel Qualified Code(s): I70.25 - Atherosclerosis of [place] arteries of other extremities with ulceration (4) Respiratory failure Current Visit: Yes Status: Acute Qualifiers: Chronicity: acute - Advance Directives Does patient have a Living Will: No Does patient have a Durable POA for Healthcare: No
[2018-12-29 13:21] LABS: Potassium 3.9 mmol/L (3.5-5.1)
[2018-12-29] MEDS ORDERED: FLUCONAZOLE 100 MG TAB PO ONE (14:20)
[2018-12-29 17:35] LABS: BUN Blood Urea Nitrogen 38 mg/dL (7-18); Bicarbonate 23 mmol/L (21-32); Glucose Level 102 mg/dL (74-106); Potassium 3.8 mmol/L (3.5-5.1); Sodium Level 152 mmol/L (136-145)
[2018-12-29] MEDS: CLOZAPINE 25 MG FT SCH (21:43)
[2018-12-30] MEDS: LORazepam 2 MG/ML VIAL IV PRN ×4 (00:56→19:30)
[2018-12-30] MEDS: PIPER/TAZO/NS 3.375gm 3.375 GM/100 ML BAG IVPB SCH ×3 (01:00→17:15)
[2018-12-30] MEDS: D5W 1,000 ML IV SCH ×3 (05:00→20:31)
[2018-12-30 05:42] LABS: Arterial Blood Carboxyhemoglob 1.3 % (0-1.5); Blood Gas Oxyhemoglobin 92.6 % (94-97); Blood O2 Saturation 94.1 % (92-98.5)
[2018-12-30 06:01] LABS: Absolute Lymphocytes (CBC) 0.5 K/uL (0.7-4.9); Basophils % 0.5 % (0-1.3); Hematocrit 32.1 % (39.6-49.0); RBC Red Blood Cell Count 3.38 M/uL (4.33-5.43)
[2018-12-30 06:23] LABS: BUN Blood Urea Nitrogen 37 mg/dL (7-18); Bicarbonate 26 mmol/L (21-32); Glucose Level 93 mg/dL (74-106); Potassium 3.4 mmol/L (3.5-5.1); Sodium Level 154 mmol/L (136-145)
--- NOTE | 2018-12-30 08:13 | RAD REPORT ---
EXAM DESCRIPTION: [place] Single View12/30/2018 6:55 am CLINICAL HISTORY: Chest pain COMPARISON: December 29, 2018 FINDINGS: Bilateral pulmonary opacities have mildly improved. Small right pleural effusion is presen t. The lungs remain hyperaerated. Endotracheal tube has its tip well above the leighann. Nasogastric tube is in place. The heart is normal size IMPRESSION: Mild improvement in bilateral pneumonia
[2018-12-30] MEDS: FLUCONAZOLE 100 MG TAB PO SCH (08:34)
[2018-12-30] MEDS: CITALOPRAM 10 MG TABLET PO SCH (08:35)
[2018-12-30] MEDS: ENOXAPARIN 30 MG/0.3 ML SQ SCH (08:35)
[2018-12-30] MEDS: VANCOMYCIN/NS 1 gm 1 GM/250 ML BAG IV SCH (08:35)
[2018-12-30] MEDS: NYSTATIN 500,000 UNIT/5 ML UDC PO SCH ×4 (08:36→20:31)
[2018-12-30] MEDS: HOME MED 1 EA UNK TOP SCH (09:00)
[2018-12-30 09:13] LABS: Blood Morphology Comment NOT SEEN (NOT SEEN); Platelet Estimate ADEQ
--- NOTE | 2018-12-30 10:54 | P.PN ---
Subjective Date of Service: 12/30/18 Chief Complaint: Respiratory failure unresponsive Patient is still unresponsive on a ventilator Review of Systems is unable to be obtained Physical Examination - Vital Signs Temperature: 98.3 F Blood Pressure: 162/62 Pulse: 75 Respirations: 23 Pulse Ox (%): 94 - Physical Exam General: Unresponsive Respiratory: Clear to auscultation bilaterally Cardiovascular: No edema, Normal S1 S2 Assessment & Plan - Problems (Diagnosis) (1) Respiratory failure Current Visit: Yes Status: Acute Plan: Patient is unresponsive hypernatremia improving cultures all negative discuss with the relatives will consider whether to insert a PEG tube in continue with ventilatory support GI Consul ordered continue with antibiotics white count normal his vent to SIMV pressure support of 15 titrate sat to 90% will start weaning in mom from the ventilator once is hypernatremia is resolved oxygenation satisfactory Qualifiers: Chronicity: acute
[2018-12-30] MEDS ORDERED: VITAL AF 1,000 ML BOT RTH SCH (13:00)
[2018-12-30 13:15] LABS: Arterial Blood Carboxyhemoglob 1.3 % (0-1.5); Blood Gas Oxyhemoglobin 89.5 % (94-97)
[2018-12-30 13:49] LABS: BUN Blood Urea Nitrogen 35 mg/dL (7-18); Bicarbonate 27 mmol/L (21-32); Glucose Level 117 mg/dL (74-106); Potassium 3.5 mmol/L (3.5-5.1); Sodium Level 152 mmol/L (136-145)
--- NOTE | 2018-12-30 17:47 | P.PN ---
Subjective Date of Service: 12/30/18 Chief Complaint: Respiratory failure unresponsive Patient seen and examined at bedside. Chart reviewed, case discussed with nursing staff. and daughter at bedside. Patient currently intubated and sedated. Review of Systems 10-point ROS is otherwise unremarkable Physical Examination - Vital Signs Temperature: 97.4 F Blood Pressure: 112/50 Pulse: 70 Respirations: 14 Pulse Ox (%): 97 - Physical Exam General: Cachectic, Other (intubated, sedated) Respiratory: Other Gastrointestinal: Normal bowel sounds, No tenderness Musculoskeletal: No tenderness Integumentary: Pressure ulcer (heel ulcer, gangrenous) Neurological: Other (sedated) Assessment And Plan - Current Problems (Diagnosis) (1) Respiratory failure Current Visit: Yes Status: Acute Plan: Likely secondary to aspiration pneumonia on top of underlying end stage comorbidities - Currently intubated and sedated - Pulmonology on board, recommendations appreciated - Vent setting, per pulmonology Qualifiers: Chronicity: acute (2) Aspiration pneumonia Current Visit: Yes Status: Acute Plan: Continue IV antibiotics: Vancomycin and zosyn (3) Atherosclerotic PVD with ulceration Current Visit: Yes Status: Chronic Plan: Continue wound care - Inoperable as patient not a good surgical candidate Qualifiers: Peripheral atherosclerosis location: lower extremity Peripheral atherosclerosis artery type: [place] artery Laterality: unspecified laterality Lower extremity ulceration location: heel Qualified Code(s): I70.25 - Atherosclerosis of [place] arteries of other extremities with ulceration (4) Severe major neurocognitive disorder probably due to Parkinson's disease, with behavioral disturbance Current Visit: Yes Status: Chronic Plan: End stage - Hospice revoked prior to this admission - GI consulted for possible PEG tube discussion. Family to continue conversation with Primary doctor on Wednesday when he returns. (5) Hypernatremia Current Visit: Yes Status: Acute Plan: Improving - Continue to monitor - Continue NGT feeds at this time. - Plan Plan: Continue current management. Family meeting to be had once primary physician returns on Wednesday for further goals of care. Overall, remains poor prognosis.
[2018-12-30] MEDS: CLOZAPINE 25 MG FT SCH (20:31)
[2018-12-30] MEDS: TAMSULOSIN 0.4 MG SR CAP PO SCH (20:33)
[2018-12-30] MEDS ORDERED: CLOZAPINE 25 MG PO SCH (21:00)
[2018-12-30 22:12] LABS: BUN Blood Urea Nitrogen 30 mg/dL (7-18); Bicarbonate 28 mmol/L (21-32); Glucose Level 116 mg/dL (74-106); Potassium 3.7 mmol/L (3.5-5.1); Sodium Level 150 mmol/L (136-145)
[2018-12-31] MEDS: PIPER/TAZO/NS 3.375gm 3.375 GM/100 ML BAG IVPB SCH ×3 (00:51→16:48)
[2018-12-31] MEDS: D5W 1,000 ML IV SCH ×3 (04:34→13:52)
[2018-12-31 05:36] LABS: BUN Blood Urea Nitrogen 24 mg/dL (7-18); Bicarbonate 28 mmol/L (21-32); Glucose Level 109 mg/dL (74-106); Potassium 3.5 mmol/L (3.5-5.1); Sodium Level 147 mmol/L (136-145)
[2018-12-31] MEDS: CITALOPRAM 10 MG TABLET PO SCH (08:30)
[2018-12-31] MEDS: ENOXAPARIN 30 MG/0.3 ML SQ SCH (08:30)
[2018-12-31] MEDS: NYSTATIN 500,000 UNIT/5 ML UDC PO SCH ×4 (08:30→20:31)
[2018-12-31] MEDS: FLUCONAZOLE 100 MG TAB PO SCH (08:31)
[2018-12-31] MEDS: VANCOMYCIN/NS 1 gm 1 GM/250 ML BAG IV SCH (08:32)
[2018-12-31] MEDS: HOME MED 1 EA UNK TOP SCH (09:00)
--- NOTE | 2018-12-31 09:11 | P.PN ---
Subjective Date of Service: 12/31/18 Chief Complaint: Respiratory failure unresponsive Patient is hemodynamically stable unresponsive sodium has declined Review of Systems is unable to be obtained Physical Examination - Vital Signs Temperature: 97.8 F Blood Pressure: 162/60 Pulse: 62 Respirations: 17 Pulse Ox (%): 100 - Physical Exam General: Unresponsive Neck: Supple Respiratory: Clear to auscultation bilaterally Cardiovascular: No edema, Normal S1 S2 Gastrointestinal: Normal bowel sounds - Studies Microbiology Data (last 24 hrs): 12/28/18 18:40 Catheterized Urine [place] Count - Final 12/28/18 18:40 Catheterized Urine - Final No growth. Assessment & Plan - Problems (Diagnosis) (1) Respiratory failure Current Visit: Yes Status: Acute Plan: Patient has respiratory failure patient is mildly anemic minimal oxygen cultures negative the reduce IV fluid rate to 75 cc an hr GI Consul for a PEG tube is pending I have discuss with relatives once is sodium is corrected and try to wean him off from the ventilator and trying to get a PEG tube patient has a living will consider withdrawal of care if unable to wean by the middle of next week Qualifiers: Chronicity: acute
--- NOTE | 2018-12-31 09:28 | RAD REPORT ---
EXAM DESCRIPTION: [place] Single View12/31/2018 6:39 am CLINICAL HISTORY: Chest pain COMPARISON: December 30, 2018 FINDINGS: Endotracheal and nasogastric tubes remain in place Mild worsening in the left and mild improvement in the right pulmonary opacities which probably repre sent pneumonia
--- NOTE | 2018-12-31 12:01 | P.PN ---
Subjective Date of Service: 12/31/18 Primary Care Provider: Dr. Gutierrez (We are covering for him) Chief Complaint: Respiratory failure unresponsive Subjective: No new changes Patient seen and examined at bedside. Chart reviewed, case discussed with nursing staff. and daughter at bedside. Patient currently intubated and sedated. Review of Systems is unable to be obtained Physical Examination - Vital Signs Temperature: 97.8 F Blood Pressure: 166/57 Pulse: 65 Respirations: 16 Pulse Ox (%): 100 - Physical Exam General: Other (Intubated and stated) Neck: Supple Respiratory: Diminished, Other (Intubated and sedated) Cardiovascular: Regular rate/rhythm, Normal S1 S2 - Studies Microbiology Data (last 24 hrs): 12/28/18 18:40 Catheterized Urine [place] Count - Final 12/28/18 18:40 Catheterized Urine - Final No growth. Assessment And Plan - Current Problems (Diagnosis) (1) Respiratory failure Current Visit: Yes Status: Acute Plan: Likely secondary to aspiration pneumonia on top of underlying end stage comorbidities - Currently intubated and sedated - Pulmonology on board, recommendations appreciated - Vent setting, per pulmonology Qualifiers: Chronicity: acute (2) Aspiration pneumonia Current Visit: Yes Status: Acute Plan: Continue IV antibiotics: Vancomycin and zosyn (3) Atherosclerotic PVD with ulceration Current Visit: Yes Status: Chronic Plan: Continue wound care - Inoperable as patient not a good surgical candidate Qualifiers: Peripheral atherosclerosis location: lower extremity Peripheral atherosclerosis artery type: [place] artery Laterality: unspecified laterality Lower extremity ulceration location: heel Qualified Code(s): I70.25 - Atherosclerosis of [place] arteries of other extremities with ulceration (4) Severe major neurocognitive disorder probably due to Parkinson's disease, with behavioral disturbance Current Visit: Yes Status: Chronic Plan: End stage - Hospice revoked prior to this admission - GI consulted for possible PEG tube discussion. Family to continue conversation with Primary doctor on Wednesday when he returns. (5) Hypernatremia Current Visit: Yes Status: Acute Plan: Improving - Continue to monitor - Continue NGT feeds at this time. - Plan Plan: Continue current management. Family meeting to be had once primary physician returns on Wednesday for further goals of care. Overall, remains poor prognosis.
[2018-12-31 12:56] LABS: BUN Blood Urea Nitrogen 19 mg/dL (7-18); Bicarbonate 27 mmol/L (21-32); Glucose Level 132 mg/dL (74-106); Potassium 3.6 mmol/L (3.5-5.1); Sodium Level 146 mmol/L (136-145)
[2018-12-31] MEDS: IPRATROPIUM BROM 0.5MG/2.5ML NEB PRN (20:00)
[2018-12-31] MEDS: ALBUTEROL 2.5 MG/3 ML NEB SOL NEB PRN (20:00)
[2018-12-31] MEDS: TAMSULOSIN 0.4 MG SR CAP PO SCH (20:30)
[2018-12-31] MEDS: CLOZAPINE 25 MG FT SCH (20:30)
[2018-12-31 21:05] LABS: BUN Blood Urea Nitrogen 17 mg/dL (7-18); Bicarbonate 28 mmol/L (21-32); Glucose Level 98 mg/dL (74-106); Potassium 3.8 mmol/L (3.5-5.1); Sodium Level 146 mmol/L (136-145)
[2019-01-01] MEDS: PIPER/TAZO/NS 3.375gm 3.375 GM/100 ML BAG IVPB SCH ×3 (00:29→15:56)
[2019-01-01] MEDS: ALBUTEROL 2.5 MG/3 ML NEB SOL NEB PRN (00:30)
[2019-01-01] MEDS: IPRATROPIUM BROM 0.5MG/2.5ML NEB PRN (00:30)
[2019-01-01] MEDS: VANCOMYCIN/NS 1 gm 1 GM/250 ML BAG IV SCH ×2 (02:39→20:27)
[2019-01-01] MEDS: LORazepam 2 MG/ML VIAL IV PRN (05:00)
[2019-01-01 05:36] LABS: BUN Blood Urea Nitrogen 14 mg/dL (7-18); Bicarbonate 28 mmol/L (21-32); Glucose Level 89 mg/dL (74-106); Potassium 3.8 mmol/L (3.5-5.1); Sodium Level 147 mmol/L (136-145)
[2019-01-01] MEDS: D5W 1,000 ML IV SCH ×3 (05:56→20:28)
[2019-01-01] MEDS: CITALOPRAM 10 MG TABLET PO SCH (08:47)
[2019-01-01] MEDS: FLUCONAZOLE 100 MG TAB PO SCH (08:47)
[2019-01-01] MEDS: ENOXAPARIN 30 MG/0.3 ML SQ SCH (08:48)
[2019-01-01] MEDS: NYSTATIN 500,000 UNIT/5 ML UDC PO SCH ×4 (08:48→20:27)
[2019-01-01] MEDS: HOME MED 1 EA UNK TOP SCH (09:00)
--- NOTE | 2019-01-01 11:49 | P.PN ---
Subjective Date of Service: 01/01/19 Primary Care Provider: Dr. Gutierrez (We are covering for him) Chief Complaint: Respiratory failure unresponsive Subjective: No new changes Patient seen and examined at bedside. Chart reviewed, case discussed with nursing staff. and daughter at bedside. Patient currently intubated and sedated. Review of Systems 10-point ROS is otherwise unremarkable Physical Examination - Vital Signs Temperature: 98.6 F Blood Pressure: 160/57 Pulse: 68 Respirations: 14 Pulse Ox (%): 98 - Physical Exam General: Other (Intubated and sedated) HEENT: Atraumatic, PERRLA, EOMI Neck: Supple, JVD not distended Respiratory: Diminished, Other (Intubated and sedated) Cardiovascular: Regular rate/rhythm, Normal S1 S2 - Studies Microbiology Data (last 24 hrs): 12/28/18 18:40 Catheterized Urine [place] Count - Final 12/28/18 18:40 Catheterized Urine - Final No growth. Assessment And Plan - Current Problems (Diagnosis) (1) Respiratory failure Current Visit: Yes Status: Acute Plan: Likely secondary to aspiration pneumonia on top of underlying end stage comorbidities - Currently intubated and sedated - Pulmonology on board, recommendations appreciated - Vent setting, per pulmonology (2) Aspiration pneumonia Current Visit: Yes Status: Acute Plan: Continue IV antibiotics: Vancomycin and zosyn (3) Atherosclerotic PVD with ulceration Current Visit: Yes Status: Chronic Plan: Continue wound care - Inoperable as patient not a good surgical candidate (4) Severe major neurocognitive disorder probably due to Parkinson's disease, with behavioral disturbance Current Visit: Yes Status: Chronic Plan: End stage - Hospice revoked prior to this admission - GI consulted for possible PEG tube discussion. Family to continue conversation with Primary doctor on Wednesday when he returns. (5) Hypernatremia Current Visit: Yes Status: Acute Plan: Stable but elevated - Continue to monitor - Continue NGT feeds at this time. - Plan Plan: Continue current management. Family meeting to be had once primary physician returns on Wednesday for further goals of care. Overall, remains poor prognosis.
[2019-01-01 20:49] LABS: BUN Blood Urea Nitrogen 13 mg/dL (7-18); Bicarbonate 29 mmol/L (21-32); Glucose Level 89 mg/dL (74-106); Sodium Level 144 mmol/L (136-145)
[2019-01-01] MEDS: TAMSULOSIN 0.4 MG SR CAP PO SCH (20:50)
[2019-01-02] MEDS: PIPER/TAZO/NS 3.375gm 3.375 GM/100 ML BAG IVPB SCH ×3 (00:10→17:00)
[2019-01-02 05:03] LABS: BUN Blood Urea Nitrogen 14 mg/dL (7-18); Bicarbonate 28 mmol/L (21-32); Glucose Level 89 mg/dL (74-106); Potassium 4.1 mmol/L (3.5-5.1); Sodium Level 145 mmol/L (136-145)
[2019-01-02 05:45] LABS: Arterial Blood Carboxyhemoglob 1.2 % (0-1.5); Blood Gas Oxyhemoglobin 96.8 % (94-97); Blood O2 Saturation 98.3 % (92-98.5)
--- NOTE | 2019-01-02 07:31 | RAD REPORT ---
EXAM DESCRIPTION: RAD - Chest Single View - 01/02/2019 6:39 am CLINICAL HISTORY: Intubation, respiratory distress COMPARISON: January 01 TECHNIQUE: AP portable chest image was obtained 0634 hours . FINDINGS: Endotracheal tube tip is near the top of the aortic arch. NG tube extends below the diaphr agm, off the field of view. PICC line remains in place. Right costophrenic angle blunting has not changed. Skin fold artifacts overlie the right chest. No ne w or progressive lung parenchymal process seen. Diaphragm is flattened. Heart and vasculature are normal. No measurable pleural effusion and no pneumothorax. No acute bony abnormality seen. No acute aortic findings suspected. IMPRESSION: ET tube and NG tube remain in good position. Pleural and parenchymal findings are not clearly different from comparison.
[2019-01-02] MEDS: ENOXAPARIN 30 MG/0.3 ML SQ SCH (09:00)
[2019-01-02] MEDS: HOME MED 1 EA UNK TOP SCH (09:00)
[2019-01-02] MEDS: FLUCONAZOLE 100 MG TAB PO SCH (09:00)
[2019-01-02] MEDS: CITALOPRAM 10 MG TABLET PO SCH (09:00)
[2019-01-02] MEDS: NYSTATIN 500,000 UNIT/5 ML UDC PO SCH ×4 (09:00→20:33)
[2019-01-02] MEDS ORDERED: ETOMIDATE 20 MG/10 ML VIAL IV ONE (12:42)
[2019-01-02] MEDS ORDERED: SUCCINYLCHOLINE 20 MG/ML (10 ML) IV ONE (12:42)
--- NOTE | 2019-01-02 13:29 | RAD REPORT ---
EXAM DESCRIPTION: RAD - Chest Single View - 01/01/2019 12:38 am CLINICAL HISTORY: 73 years Male, S/P PICC insertion COMPARISON: None. FINDINGS: A right upper extremity PICC line is demonstrated with its tip in the lower SVC. Endotrach eal tube is present with tip 4.8 cm above the leighann. Esophogastric tube is demonstrated coursing int o the stomach with tip projecting below the inferior margin of the image. Blunting of the right costophrenic angle is demonstrated suggestive of a small right pleural effusion versus pleural thickening. There is hazy opacity in the right lower lung zone. Heart size normal. Aortic atherosclerosis is present. Osseous structures are unremarkable. IMPRESSION: 1. Right upper extremity PICC line tip in the lower SVC. 2. Hazy opacity in the right lower lung zone which may reflect atelectasis or infiltrate such as pneu monia 3. Small right pleural effusion versus pleural thickening. Electronically signed by: Bunny Lan MD 01/01/2019 1:11 AM CDT Due to temporary technical issues with the PACS/Fluency reporting system, reports are being signed by the in house radiologist as a courtesy to ensure prompt reporting. The interpreting radiologist is f ully responsible for the content of the report.
[2019-01-02] MEDS: VANCOMYCIN/NS 1 gm 1 GM/250 ML BAG IV SCH (14:47)
[2019-01-02] MEDS ORDERED: PROPOFOL 1,000 MG/100 ML VIAL IV ONE (17:32)
--- NOTE | 2019-01-02 17:52 | P.PN ---
Subjective Date of Service: 01/02/19 Primary Care Provider: Dr. Gutierrez (We are covering for him) Chief Complaint: Respiratory failure unresponsive Subjective: No new changes STILL INTUBATED, WEAK, FAMILY WANTS G TUBE PLACED. Review of Systems is unable to be obtained General: Weakness Physical Examination - Vital Signs Temperature: 98.3 F Blood Pressure: 157/56 Pulse: 79 Respirations: 13 Pulse Ox (%): 98 - Physical Exam General: Cachectic, Moderate distress HEENT: Atraumatic, PERRLA, EOMI Neck: Supple, JVD not distended Respiratory: Clear to auscultation bilaterally, Normal air movement Cardiovascular: Regular rate/rhythm, Normal S1 S2 Gastrointestinal: Normal bowel sounds, No tenderness Musculoskeletal: No tenderness Integumentary: No rashes Neurological: Dementia (BY HISTORY FROM PARKINSON'S DISEASE. INTUBATED.) Lymphatics: No axilla or inguinal lymphadenopathy - Studies Medications List Reviewed: Yes Assessment And Plan - Current Problems (Diagnosis) (1) Aspiration pneumonia Current Visit: Yes Status: Acute Plan: IV ZOSYN AND VANCOMYCIN. TALKED TO THIS AM. I EXPLAINED THAT WE WERE TRYING TO PREVENT THE HEROIC MEASURES BUT NOW HE IS IN ICU. SHE UNDERSTANDS. SHE SAYS SHE PANICKED AND SO DID DAUGHTERS. SHE UNDERSTANDS THAT HE IS TERMINAL, AND PATIENTS WHO ARE DYING WILL HAVE SOME ACUTE ILLNESS BEFORE THEY . PEG MARCELLE PLACED. HE IS IN A VERY POOR CONDITION. HE MOST LIKELY NOT BENEFIT FROM G TUBE BUT WILL FOLLOW WHAT FAMILY WANTS. 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 (3) Atherosclerotic PVD with ulceration Current Visit: Yes Status: Chronic Plan: INOPERABLE. RESUME COMFORT CARE. MEDICALLY UNSTABLE. ULCER HAS HEALED. PVD CONTINUES. Qualifiers: Peripheral atherosclerosis location: lower extremity Peripheral atherosclerosis artery type: [place] artery Laterality: unspecified laterality Lower extremity ulceration location: heel Qualified Code(s): I70.25 - Atherosclerosis of [place] arteries of other extremities with ulceration (4) Respiratory failure Current Visit: Yes Status: Acute Plan: DR. SAAB IS MANAGING THIS. EXUBATION PROCEDURES. MAY NOT BE ABLE TO WEANOFF. EVEN IF HE WEANS OFF, HE MAY NOT BE ABLE TO SURVIVE FOR LONG HE IS SEVERELY AFFECTED FROM PARKSION'S DISEASE. Qualifiers: Chronicity: acute
[2019-01-02] MEDS ORDERED: D50W 25 GM/50 ML SYRINGE IV PRN (19:28)
[2019-01-02] MEDS: D5W 1,000 ML IV SCH (19:35)
[2019-01-02] MEDS: TAMSULOSIN 0.4 MG SR CAP PO SCH (21:00)
[2019-01-02] MEDS ORDERED: GLUCERNA 1.2 CAL 1,000 ML BOT FT SCH (22:00)
[2019-01-03] MEDS: PIPER/TAZO/NS 3.375gm 3.375 GM/100 ML BAG IVPB SCH ×3 (00:54→17:39)
[2019-01-03 05:05] LABS: Absolute Lymphocytes (CBC) 0.6 K/uL (0.7-4.9); Basophils % 0.6 % (0-1.3); Hematocrit 29.2 % (39.6-49.0); Lymphocytes % 6.9 % (15.3-44.8); MPV 9.3 fL (7.6-11.3); RBC Red Blood Cell Count 3.08 M/uL (4.33-5.43)
[2019-01-03 05:18] LABS: Arterial Blood Carboxyhemoglob 1.2 % (0-1.5); Blood Gas Oxyhemoglobin 96.6 % (94-97); Blood O2 Saturation 98.2 % (92-98.5)
[2019-01-03 05:19] LABS: BUN Blood Urea Nitrogen 14 mg/dL (7-18); Bicarbonate 29 mmol/L (21-32); Glucose Level 85 mg/dL (74-106); Potassium 3.9 mmol/L (3.5-5.1); Sodium Level 143 mmol/L (136-145)
--- NOTE | 2019-01-03 08:52 | OP ---
Date of Procedure: 01/02/2019 Surgeon: Jerel Culver MD Procedure: Urgent esophagogastroduodenoscopy for PEG tube placement dysphagia. Indication For Procedure: This patient had recurrent aspiration but now with double pneumonia, on me chanical ventilation in ICU with end-stage Parkinson disease, on hospice treated for this bilateral pneumonia and need for enteral nutrition. Procedure In Detail: Patient was placed slightly in the left lateral position. Endoscope was placed in the oropharynx and extended to the second portion of the duodenum, brought back in the stomach __ . Retroflexion views obtained with small hiatal hernia noted. Patient had gastritis with so me mild gastritis in the body and antrum with some NG tube trauma noted in the stomach. NG tube was in place and removed from the stomach. Site was selected. Patient was prepped and draped in a steri le fashion of the abdomen. Site was selected. A 20-[place] PEG tube was placed endoscopically withou t complication. Patient tolerated the procedure well. Biopsies were obtained for gastritis. Impression: 1.20-[place] PEG tube placed endoscopically without complication. 2.Mild gastritis of the stomach, status post biopsies. 3.Nasogastric tube trauma noted in the distal body and antrum of the stomach. 4.Small hiatal hernia. Recommendations: 1.Begin tube feeds in 3 hours. 2.PPI therapy. 3.Await biopsies and pathology results. LAURA/ANTIONETTE Voice ID: [id number] Report ID: [id number]
[2019-01-03] MEDS: VANCOMYCIN/NS 1 gm 1 GM/250 ML BAG IV SCH ×2 (08:55→21:16)
[2019-01-03] MEDS: FLUCONAZOLE 100 MG TAB PO SCH (08:55)
[2019-01-03] MEDS: NYSTATIN 500,000 UNIT/5 ML UDC PO SCH ×4 (08:55→21:16)
[2019-01-03] MEDS: D5W 1,000 ML IV SCH ×2 (08:55→22:40)
[2019-01-03] MEDS: ENOXAPARIN 30 MG/0.3 ML SQ SCH (08:55)
[2019-01-03] MEDS: HOME MED 1 EA UNK TOP SCH (08:56)
--- NOTE | 2019-01-03 08:56 | RAD REPORT ---
EXAM DESCRIPTION: [place] Single View01/03/2019 6:31 am CLINICAL HISTORY: Chest pain COMPARISON: January 02, 2019 FINDINGS: The lungs are hyperaerated Bilateral pulmonary opacities right greater than left are without obvious change Endotracheal tube and PICC line remain in place Small right pleural effusion or thickening
[2019-01-03] MEDS: CITALOPRAM 10 MG TABLET PO SCH (08:57)
--- NOTE | 2019-01-03 12:44 | P.PN ---
Subjective Date of Service: 01/03/19 Primary Care Provider: Dr. Gutierrez Chief Complaint: PNEUMONIA Subjective: Improving STILL INTUBATED, WEAK, FAMILY WANTS G TUBE PLACED. INTUBATED , HAD G TUBE YESTERDAY, TO BE EXTUBATED IF POSSIBLE TODAY. Review of Systems is unable to be obtained Physical Examination - Vital Signs Temperature: 97.1 F Blood Pressure: 161/93 Pulse: 78 Respirations: 16 Pulse Ox (%): 98 - Physical Exam General: Alert, Cachectic, Moderate distress HEENT: Atraumatic, PERRLA, EOMI Neck: Supple, JVD not distended Respiratory: Diminished Cardiovascular: Regular rate/rhythm, Normal S1 S2 Gastrointestinal: Normal bowel sounds, No tenderness Musculoskeletal: No tenderness Integumentary: No rashes Neurological: Normal speech, Normal tone, Normal affect Lymphatics: No axilla or inguinal lymphadenopathy - Studies Microbiology Data (last 24 hrs): 12/28/18 19:00 Blood - Blood Aerobic Blood Culture - Final 12/28/18 19:00 Blood - Blood Gram Stain - Final 12/28/18 19:00 Blood - Blood Anaerobic Blood Culture - Final No growth in 5 days. 12/28/18 18:45 Blood - Blood Aerobic Blood Culture - Final No growth in 5 days. 12/28/18 18:45 Blood - Blood Anaerobic Blood Culture - Final No growth in 5 days. Medications List Reviewed: Yes Assessment And Plan - Current Problems (Diagnosis) (1) Aspiration pneumonia Current Visit: Yes Status: Acute Plan: IV ZOSYN AND VANCOMYCIN. TALKED TO THIS AM. I EXPLAINED THAT WE WERE TRYING TO PREVENT THE HEROIC MEASURES BUT NOW HE IS IN ICU. SHE UNDERSTANDS. SHE SAYS SHE PANICKED AND SO DID DAUGHTERS. SHE UNDERSTANDS THAT HE IS TERMINAL, AND PATIENTS WHO ARE DYING WILL HAVE SOME ACUTE ILLNESS BEFORE THEY . PEG MARCELLE PLACED. HE IS IN A VERY POOR CONDITION. HE MOST LIKELY NOT BENEFIT FROM G TUBE BUT WILL FOLLOW WHAT FAMILY WANTS. I HAD A LONG DISCUSSION WITH , DAUGHTER AND SISTER TODAY. WE DISCUSSED OPTIONS. HE HAS LIVING WILL WHERE HE DOES NOT WANT LIFE SUPPORT. FAMILY IS AWARE THAT IF EXTUBATION FAILS HE WILL GO TO LTAC OR WITHDRAW CARE. THEY WILL DECIDE TO FOLLOW HIS WILL MOST LIKELY. THEY UNDERSTAND THAT EVEN IF HE GOES TO LTAC HIS CHANCES OF LONGER TERM SURVIVAL ARE POOR. IT IS UPTO THEM TO DECIDE TO LET HIM SUFFER WITH CONTINUED INTUBATION OR NOT. 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 (3) Atherosclerotic PVD with ulceration Current Visit: Yes Status: Chronic Plan: INOPERABLE. RESUME COMFORT CARE. MEDICALLY UNSTABLE. ULCER HAS HEALED. PVD CONTINUES. Qualifiers: Peripheral atherosclerosis location: lower extremity Peripheral atherosclerosis artery type: [place] artery Laterality: unspecified laterality Lower extremity ulceration location: heel Qualified Code(s): I70.25 - Atherosclerosis of [place] arteries of other extremities with ulceration (4) Respiratory failure Current Visit: Yes Status: Acute Plan: DR. SAAB IS MANAGING THIS. EXUBATION PROCEDURES. MAY NOT BE ABLE TO WEANOFF. EVEN IF HE WEANS OFF, HE MAY NOT BE ABLE TO SURVIVE FOR LONG HE IS SEVERELY AFFECTED FROM PARKSION'S DISEASE. Qualifiers: Chronicity: acute
--- NOTE | 2019-01-03 12:54 | P.PN ---
Subjective Date of Service: 01/03/19 Primary Care Provider: Dr. Gutierrez Chief Complaint: Respiratory failure Patient is doing much better status post PEG tube is alert responsive minimally cooperative hemodynamically stay on spontaneous breathing trial for about an an hr Review of Systems is unable to be obtained Physical Examination - Vital Signs Temperature: 97.1 F Blood Pressure: 161/93 Pulse: 78 Respirations: 16 Pulse Ox (%): 98 - Physical Exam General: Cooperative Neck: Supple Respiratory: Clear to auscultation bilaterally Cardiovascular: No edema, Regular rate/rhythm, Normal S1 S2 - Studies Microbiology Data (last 24 hrs): 12/28/18 19:00 Blood - Blood Aerobic Blood Culture - Final 12/28/18 19:00 Blood - Blood Gram Stain - Final 12/28/18 19:00 Blood - Blood Anaerobic Blood Culture - Final No growth in 5 days. 12/28/18 18:45 Blood - Blood Aerobic Blood Culture - Final No growth in 5 days. 12/28/18 18:45 Blood - Blood Anaerobic Blood Culture - Final No growth in 5 days. Medications List Reviewed: Yes Assessment & Plan - Problems (Diagnosis) (1) Respiratory failure Current Visit: Yes Status: Acute Plan: Patient is doing much better hemodynamically stable oxygen a gonzalez satisfactory he has passed a spontaneous breathing trial will plan to extubate him status post PEG tube patient's cultures are all negative white count is normal continue with present doses of antibiotics labs reviewed Qualifiers: Chronicity: acute
--- NOTE | 2019-01-03 18:51 | P.PN ---
Subjective Date of Service: 01/03/19 Primary Care Provider: Dr. Gutierrez Chief Complaint: Respiratory failure, dysphagia, aspiration pneumonia b/ Subjective: Improving (Extubated today. Tolerating TFs Glucerna at 40 cc/hour. Talking to family members at bedside in ICU-5. S/p PEG tube placement yesterday.) Review of Systems General: Weakness (Improved. ) Respiratory: Shortness of Breath (labored somewhat) Neurological: Weakness Physical Examination - Vital Signs Temperature: 97.1 F Blood Pressure: 147/67 Pulse: 75 Respirations: 22 Pulse Ox (%): 100 - Physical Exam General: Alert, Oriented x2, Cooperative HEENT: Atraumatic, Normocephalic, PERRLA, EOMI Neck: Supple Respiratory: Diminished Cardiovascular: Normal pulses Gastrointestinal: Non-distended, No tenderness, No rebound, No guarding Neurological: Normal speech, Abnormal strength (weak) - Studies Microbiology Data (last 24 hrs): 12/28/18 19:00 Blood - Blood Aerobic Blood Culture - Final 12/28/18 19:00 Blood - Blood Gram Stain - Final 12/28/18 19:00 Blood - Blood Anaerobic Blood Culture - Final No growth in 5 days. 12/28/18 18:45 Blood - Blood Aerobic Blood Culture - Final No growth in 5 days. 12/28/18 18:45 Blood - Blood Anaerobic Blood Culture - Final No growth in 5 days. Medications List Reviewed: Yes Assessment And Plan - Current Problems (Diagnosis) (1) Aspiration pneumonia Current Visit: Yes Status: Acute (2) Hypernatremia Current Visit: Yes Status: Acute (3) Respiratory failure Current Visit: Yes Status: Acute Qualifiers: Chronicity: acute - Plan REC: 1) check albumin, pre-albumin 2) continue TFs at 40 cc/hour (extubated today)
[2019-01-03 19:53] LABS: Prealbumin 11.4 mg/dL (20-40)
[2019-01-03] MEDS: TAMSULOSIN 0.4 MG SR CAP PO SCH (21:00)
[2019-01-04] MEDS: PIPER/TAZO/NS 3.375gm 3.375 GM/100 ML BAG IVPB SCH ×2 (01:15→08:52)
[2019-01-04 05:59] VITALS: BMI 20.5
[2019-01-04] MEDS: FLUCONAZOLE 100 MG TAB PO SCH (08:53)
[2019-01-04] MEDS: CITALOPRAM 10 MG TABLET PO SCH (08:53)
[2019-01-04] MEDS: ENOXAPARIN 30 MG/0.3 ML SQ SCH (08:54)
[2019-01-04] MEDS: NYSTATIN 500,000 UNIT/5 ML UDC PO SCH ×4 (08:55→20:33)
[2019-01-04] MEDS ORDERED: VANCOMYCIN 1.25 GM in NA CHLORIDE 0.9% 250 ML IVPB SCH (09:00)
[2019-01-04] MEDS: HOME MED 1 EA UNK TOP SCH (09:00)
[2019-01-04] MEDS: D5W 1,000 ML IV SCH (10:24)
--- NOTE | 2019-01-04 12:03 | RAD REPORT ---
EXAM DESCRIPTION: RAD - Barium Swallow Modified - 01/04/2019 11:52 am CLINICAL HISTORY: Aspiration pneumonia FINDINGS: Aspiration NO COUGH with thin, nectar, honey Discontinued the study after gross silent aspiration occurred (worse as liquid viscosity increased.) Fluoroscopy time 1.2 minutes. Ten fluoroscopic spot series obtained
--- NOTE | 2019-01-04 12:23 | P.PN ---
Subjective Date of Service: 01/04/19 Primary Care Provider: Dr. Gutierrez Chief Complaint: Respiratory failure, dysphagia, aspiration pneumonia b/ Patient is doing much better he was transferred to the floor today's alert responsive cooperative communicating Review of Systems General: Weakness Respiratory: Cough, Shortness of Breath Physical Examination - Vital Signs Temperature: 98.9 F Blood Pressure: 162/63 Pulse: 65 Respirations: 14 Pulse Ox (%): 98 - Physical Exam General: Alert, Cooperative Respiratory: Clear to auscultation bilaterally Cardiovascular: No edema, Normal pulses - Studies Medications List Reviewed: Yes Assessment & Plan - Problems (Diagnosis) (1) Respiratory failure Current Visit: Yes Status: Resolved Plan: Patient is doing much better hemodynamically stable oxygen a gonzalez satisfactory he has passed a spontaneous breathing trial will plan to extubate him status post PEG tube patient's cultures are all negative white count is normal continue with present doses of antibiotics labs reviewed Qualifiers: Chronicity: acute (2) Hypernatremia Current Visit: Yes Status: Acute Plan: Patient is 73 years of age admitted with dehydration he has improved Dc all antibiotics cultures are all negative pro calcitonin level is negative Dc IV fluids oxygen saturation is normal vital signs are all stable chemistries reviewed white count normal kidney function normal continue with physical therapy
--- NOTE | 2019-01-04 13:25 | P.PN ---
Subjective Date of Service: 01/04/19 Primary Care Provider: Dr. Gutierrez Chief Complaint: Respiratory failure, dysphagia, aspiration pneumonia b/ Subjective: Improving (Moved to floor. Tolerating TFs well. Failed bedside swallow eval today, as per .) Review of Systems 10-point ROS is otherwise unremarkable General: Weakness Gastrointestinal: Other (dysphagia) Physical Examination - Vital Signs Temperature: 98.9 F Blood Pressure: 162/63 Pulse: 65 Respirations: 14 Pulse Ox (%): 98 - Physical Exam General: Alert, In no apparent distress, Oriented x1, Cooperative HEENT: Atraumatic, Normocephalic, PERRLA, EOMI Neck: Supple Respiratory: Normal air movement Cardiovascular: Normal pulses Gastrointestinal: Soft and benign, No tenderness, No rebound, No guarding - Studies Medications List Reviewed: Yes Assessment And Plan - Current Problems (Diagnosis) (1) Aspiration pneumonia Current Visit: Yes Status: Acute (2) Hypernatremia Current Visit: Yes Status: Acute (3) Respiratory failure Current Visit: Yes Status: Resolved Qualifiers: Chronicity: acute - Plan REC: 1) continue TFs at 40 cc/hour (extubated yesterday)
[2019-01-04] MEDS: TAMSULOSIN 0.4 MG SR CAP PO SCH (20:34)
--- NOTE | 2019-01-04 21:02 | P.PN ---
Subjective Date of Service: 01/04/19 Primary Care Provider: Dr. Gutierrez Chief Complaint: Respiratory failure, dysphagia, aspiration pneumonia b/ Subjective: Improving HE NOW IS EXTUBATED. STILL VERY WEAK, FOLLOWS WITH HIS HEAD SLOWLY, DOES NOT TALK MUCH. HE HAS SIGNIFICANT DEMENTIA FROM PARKINSON'S Review of Systems 10-point ROS is otherwise unremarkable General: Weakness, Malaise Neurological: Confusion Physical Examination - Vital Signs Temperature: 98.7 F Blood Pressure: 144/69 Pulse: 98 Respirations: 16 Pulse Ox (%): 95 - Physical Exam General: Alert, Cachectic, Mild distress HEENT: Atraumatic, PERRLA, EOMI Neck: Supple, JVD not distended Respiratory: Diminished Cardiovascular: Regular rate/rhythm, Normal S1 S2 Gastrointestinal: Normal bowel sounds, No tenderness Musculoskeletal: No tenderness Integumentary: No rashes Neurological: Normal speech, Normal tone, Normal affect Lymphatics: No axilla or inguinal lymphadenopathy - Studies Medications List Reviewed: Yes Assessment And Plan - Current Problems (Diagnosis) (1) Aspiration pneumonia Current Visit: Yes Status: Acute Plan: ABX MANAGED BY DR SAAB. HE FAILED BARIUM MOD TEST. NPO FROM NOW ON. G TUBE FED HEHAS NOT WANTED ANY LIFESUPPORT PER WILL BUT FAMILY OVERTURNED HIS WILL. THEY NOW DO NOT WANT ANY RESUSCITATION. 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 (3) Atherosclerotic PVD with ulceration Current Visit: Yes Status: Chronic Plan: INOPERABLE. RESUME COMFORT CARE. MEDICALLY UNSTABLE. ULCER HAS HEALED. PVD CONTINUES. Qualifiers: Peripheral atherosclerosis location: lower extremity Peripheral atherosclerosis artery type: [place] artery Laterality: unspecified laterality Lower extremity ulceration location: heel Qualified Code(s): I70.25 - Atherosclerosis of [place] arteries of other extremities with ulceration (4) Respiratory failure Current Visit: Yes Status: Resolved Plan: DR. SAAB IS MANAGING THIS. EXUBATION PROCEDURES. MAY NOT BE ABLE TO WEANOFF. EVEN IF HE WEANS OFF, HE MAY NOT BE ABLE TO SURVIVE FOR LONG HE IS SEVERELY AFFECTED FROM PARKSION'S DISEASE. Qualifiers: Chronicity: acute
[2019-01-04] MEDS: GLUCERNA 1.2 CAL 1,000 ML BOT FT SCH (23:27)
[2019-01-05] MEDS: HOME MED 1 EA UNK TOP SCH (09:00)
[2019-01-05] MEDS: CITALOPRAM 10 MG TABLET PO SCH (09:14)
[2019-01-05] MEDS: FLUCONAZOLE 100 MG TAB PO SCH (09:15)
[2019-01-05] MEDS: NYSTATIN 500,000 UNIT/5 ML UDC PO SCH ×4 (09:15→22:23)
[2019-01-05] MEDS: ENOXAPARIN 30 MG/0.3 ML SQ SCH (09:15)
--- NOTE | 2019-01-05 17:48 | P.PN ---
Subjective Date of Service: 01/05/19 Primary Care Provider: Dr. Gutierrez Chief Complaint: Respiratory failure, dysphagia, aspiration pneumonia b/ Subjective: Improving HE NOW IS EXTUBATED. STILL VERY WEAK, FOLLOWS WITH HIS HEAD SLOWLY, DOES NOT TALK MUCH. HE HAS SIGNIFICANT DEMENTIA FROM PARKINSON'S VERY WEAK, BED BOUND. Review of Systems is unable to be obtained (NOT ABLE TO COMMUNICATE.) Physical Examination - Vital Signs Temperature: 98.4 F Blood Pressure: 183/83 Pulse: 87 Respirations: 19 Pulse Ox (%): 95 - Physical Exam General: Cachectic, Mild distress HEENT: Atraumatic, PERRLA, EOMI Neck: Supple, JVD not distended Respiratory: Clear to auscultation bilaterally, Normal air movement Cardiovascular: Regular rate/rhythm, Normal S1 S2 Gastrointestinal: Normal bowel sounds, No tenderness Musculoskeletal: No tenderness Integumentary: No rashes Neurological: Abnormal speech, Abnormal tone, Dementia Lymphatics: No axilla or inguinal lymphadenopathy - Studies Medications List Reviewed: Yes Assessment And Plan - Current Problems (Diagnosis) (1) Aspiration pneumonia Current Visit: Yes Status: Acute Plan: ABX MANAGED BY DR SAAB. HE FAILED BARIUM MOD TEST. NPO FROM NOW ON. G TUBE FED HEHAS NOT WANTED ANY LIFESUPPORT PER WILL BUT FAMILY OVERTURNED HIS WILL. THEY NOW DO NOT WANT ANY RESUSCITATION. Qualifiers: Laterality: bilateral (2) Severe major neurocognitive disorder probably due to Parkinson's disease, with behavioral disturbance Current Visit: Yes Status: Chronic Plan: END STAGE. TALKED TO . I ADVISE [facility]. HE WILL NOT TOLERATE REHAB- 3 HOURS OF PT DAILY. SHE UNDERSTANDS. I ADVISE HOSPICE AGAIN BUT SHE WANTS TO WAIT COUPLE OF WEEKS. HE IS SEVERELY CACHECTIC, PD PATIENT. (3) Atherosclerotic PVD with ulceration Current Visit: Yes Status: Chronic Plan: INOPERABLE. RESUME COMFORT CARE. MEDICALLY UNSTABLE. ULCER HAS HEALED. PVD CONTINUES. Qualifiers: Peripheral atherosclerosis location: lower extremity Peripheral atherosclerosis artery type: [place] artery Laterality: unspecified laterality Lower extremity ulceration location: heel Qualified Code(s): I70.25 - Atherosclerosis of [place] arteries of other extremities with ulceration (4) Respiratory failure Current Visit: Yes Status: Resolved Plan: DR. SAAB IS MANAGING THIS. EXUBATION PROCEDURES. MAY NOT BE ABLE TO WEANOFF. EVEN IF HE WEANS OFF, HE MAY NOT BE ABLE TO SURVIVE FOR LONG HE IS SEVERELY AFFECTED FROM PARKSION'S DISEASE. Qualifiers: Chronicity: acute
[2019-01-05] MEDS: CLOZAPINE PO SCH (18:00)
[2019-01-05] MEDS: IPRATROPIUM BROM 0.5MG/2.5ML NEB PRN (19:05)
[2019-01-05] MEDS: ALBUTEROL 2.5 MG/3 ML NEB SOL NEB PRN (19:05)
[2019-01-05] MEDS: TAMSULOSIN 0.4 MG SR CAP PO SCH (21:00)
[2019-01-05] MEDS: GLUCERNA 1.2 CAL 1,000 ML BOT FT SCH (22:27)
[2019-01-06] MEDS: IPRATROPIUM BROM 0.5MG/2.5ML NEB PRN (00:15)
[2019-01-06] MEDS: ALBUTEROL 2.5 MG/3 ML NEB SOL NEB PRN (00:15)
[2019-01-06] MEDS ORDERED: CLOZAPINE 25 MG PO SCH ×2 (06:00→09:00)
[2019-01-06] MEDS: HOME MED 1 EA UNK TOP SCH (09:00)
[2019-01-06] MEDS: ENOXAPARIN 30 MG/0.3 ML SQ SCH (10:00)
[2019-01-06] MEDS: NYSTATIN 500,000 UNIT/5 ML UDC PO SCH ×4 (10:00→22:27)
[2019-01-06] MEDS: LOSARTAN POTASSIUM 50 MG TABLET PO SCH (10:01)
[2019-01-06] MEDS: CITALOPRAM 10 MG TABLET PO SCH (10:01)
[2019-01-06] MEDS: FLUCONAZOLE 100 MG TAB PO SCH (10:01)
[2019-01-06] MEDS: CLOZAPINE PO SCH (18:10)
--- NOTE | 2019-01-06 18:38 | P.PN ---
Subjective Date of Service: 01/06/19 Primary Care Provider: Dr. Gutierrez Chief Complaint: Respiratory failure, dysphagia, aspiration pneumonia b/ Subjective: No new changes HE NOW IS EXTUBATED. STILL VERY WEAK, FOLLOWS WITH HIS HEAD SLOWLY, DOES NOT TALK MUCH. HE HAS SIGNIFICANT DEMENTIA FROM PARKINSON'S VERY WEAK, BED BOUND. NO CHANGES. BED BOUND. NOT MOVING MUCH. Review of Systems is unable to be obtained Physical Examination - Vital Signs Temperature: 98.7 F Blood Pressure: 185/75 Pulse: 86 Respirations: 18 Pulse Ox (%): 94 - Physical Exam General: Cachectic, Mild distress, Confused (ONLY WAKES UP WHEN SHOOK WITH HANDS.) Respiratory: Diminished Cardiovascular: Normal S1 S2 Musculoskeletal: Other Neurological: Other (NON VERBAL, DOES NOT RESPOND MUCH. NOT ABLE TO DO ANY PT OR OT. BED BOUND.), Abnormal tone (WEAK, CACHECTIC), Dementia - Studies Medications List Reviewed: Yes Assessment And Plan - Current Problems (Diagnosis) (1) Aspiration pneumonia Current Visit: Yes Status: Acute Plan: ABX MANAGED BY DR SAAB. HE FAILED BARIUM MOD TEST. NPO FROM NOW ON. G TUBE FED HEHAS NOT WANTED ANY LIFESUPPORT PER WILL BUT FAMILY OVERTURNED HIS WILL. THEY NOW DO NOT WANT ANY RESUSCITATION. Qualifiers: Laterality: bilateral (2) Severe major neurocognitive disorder probably due to Parkinson's disease, with behavioral disturbance Current Visit: Yes Status: Chronic Plan: END STAGE. TALKED TO . I [facility]ISE [facility]. HE WILL NOT TOLERATE REHAB- 3 HOURS OF PT DAILY. SHE UNDERSTANDS. I ADVISE HOSPICE AGAIN BUT SHE WANTS TO WAIT COUPLE OF WEEKS. HE IS SEVERELY CACHECTIC, PD PATIENT. IDEALLY HE SHOULD BE BACK ON HOSPICE. HE HAS END STAGE PARKSINSON'S HE IS BEDBOUND, FED BY G TUBE. DONE ALL THESE FAMILY WAS NOT READY FOR HIM TO [facility] HE IS STILL IN THE SAME END STAGE CONDITION. NOW DNR PER FAMILY'S WISH. HE HAS DNR STATUS BY HIS WISH FOR LONG DURATION. (3) Atherosclerotic PVD with ulceration Current Visit: Yes Status: Chronic Plan: INOPERABLE. RESUME COMFORT CARE. MEDICALLY UNSTABLE. ULCER HAS HEALED. PVD CONTINUES. Qualifiers: Peripheral atherosclerosis location: lower extremity Peripheral atherosclerosis artery type: [place] artery Laterality: unspecified laterality Lower extremity ulceration location: heel Qualified Code(s): I70.25 - Atherosclerosis of [place] arteries of other extremities with ulceration (4) Respiratory failure Current Visit: Yes Status: Resolved Plan: DR. SAAB IS MANAGING THIS. EXUBATION PROCEDURES. MAY NOT BE ABLE TO WEANOFF. EVEN IF HE WEANS OFF, HE MAY NOT BE ABLE TO SURVIVE FOR LONG HE IS SEVERELY AFFECTED FROM PARKSION'S DISEASE. Qualifiers: Chronicity: acute
[2019-01-06] MEDS: TAMSULOSIN 0.4 MG SR CAP PO SCH (21:00)
[2019-01-06] MEDS: GLUCERNA 1.2 CAL 1,000 ML BOT FT SCH (22:29)
[2019-01-07] MEDS: HOME MED 1 EA UNK TOP SCH (09:00)
[2019-01-07] MEDS: NYSTATIN 500,000 UNIT/5 ML UDC PO SCH ×4 (09:28→22:46)
[2019-01-07] MEDS: LOSARTAN POTASSIUM 50 MG TABLET PO SCH (09:30)
[2019-01-07] MEDS: CITALOPRAM 10 MG TABLET PO SCH (09:31)
[2019-01-07] MEDS: ENOXAPARIN 30 MG/0.3 ML SQ SCH (09:31)
--- NOTE | 2019-01-07 13:52 | P.PN ---
Subjective Date of Service: 01/07/19 Primary Care Provider: Dr. Gutierrez Chief Complaint: Respiratory failure, dysphagia, aspiration pneumonia b/ Subjective: No new changes HE NOW IS EXTUBATED. STILL VERY WEAK, FOLLOWS WITH HIS HEAD SLOWLY, DOES NOT TALK MUCH. HE HAS SIGNIFICANT DEMENTIA FROM PARKINSON'S VERY WEAK, BED BOUND. NO CHANGES. BED BOUND. NOT MOVING MUCH. WEAK, FRAIL, BED BOUND,MAINLY NOT MOBILE. Review of Systems General: Weakness, Malaise Respiratory: As per HPI Physical Examination - Vital Signs Temperature: 98 F Blood Pressure: 141/49 Pulse: 76 Respirations: 17 Pulse Ox (%): 96 - Physical Exam General: Cachectic, Mild distress, Confused, Other (STARTLES ON WAKING UP.) HEENT: Atraumatic, PERRLA, EOMI Neck: Supple, JVD not distended Respiratory: Clear to auscultation bilaterally, Normal air movement Cardiovascular: Regular rate/rhythm, Normal S1 S2 Gastrointestinal: Normal bowel sounds, No tenderness Musculoskeletal: No tenderness Integumentary: No rashes Neurological: Abnormal strength, Abnormal tone, Dementia Lymphatics: No axilla or inguinal lymphadenopathy - Studies Medications List Reviewed: Yes Assessment And Plan - Current Problems (Diagnosis) (1) Aspiration pneumonia Current Visit: Yes Status: Acute Plan: ABX MANAGED BY DR SAAB. HE FAILED BARIUM MOD TEST. NPO FROM NOW ON. G TUBE FED HEHAS NOT WANTED ANY LIFESUPPORT PER WILL BUT FAMILY OVERTURNED HIS WILL. THEY NOW DO NOT WANT ANY RESUSCITATION. Qualifiers: Laterality: bilateral (2) Severe major neurocognitive disorder probably due to Parkinson's disease, with behavioral disturbance Current Visit: Yes Status: Chronic Plan: END STAGE. TALKED TO . I ADVISE [facility]. HE WILL NOT TOLERATE REHAB- 3 HOURS OF PT DAILY. SHE UNDERSTANDS. I ADVISE HOSPICE AGAIN BUT SHE WANTS TO WAIT COUPLE OF WEEKS. HE IS SEVERELY CACHECTIC, PD PATIENT. IDEALLY HE SHOULD BE BACK ON HOSPICE. HE HAS END STAGE PARKSINSON'S HE IS BEDBOUND, FED BY G TUBE. DONE ALL THESE FAMILY WAS NOT READY FOR HIM TO [facility] HE IS STILL IN THE SAME END STAGE CONDITION. NOW DNR PER FAMILY'S WISH. HE HAS DNR STATUS BY HIS WISH FOR LONG DURATION. BED BOUND. HE WILL GO TO NH IF APPROVED. HE WAS WALKING BEFORE BUT UNSTEADY. FAMILY UNDERSTANDS BUT DAUGHTER PROBABLY HAS UNREALISTIC EXPECTATIONS. (3) Atherosclerotic PVD with ulceration Current Visit: Yes Status: Chronic Plan: INOPERABLE. RESUME COMFORT CARE. MEDICALLY UNSTABLE. ULCER HAS HEALED. PVD CONTINUES. Qualifiers: Peripheral atherosclerosis location: lower extremity Peripheral atherosclerosis artery type: [place] artery Laterality: unspecified laterality Lower extremity ulceration location: heel Qualified Code(s): I70.25 - Atherosclerosis of [place] arteries of other extremities with ulceration (4) Respiratory failure Current Visit: Yes Status: Resolved Plan: DR. SAAB IS MANAGING THIS. EXUBATION PROCEDURES. MAY NOT BE ABLE TO WEANOFF. EVEN IF HE WEANS OFF, HE MAY NOT BE ABLE TO SURVIVE FOR LONG HE IS SEVERELY AFFECTED FROM PARKSION'S DISEASE. Qualifiers: Chronicity: acute
--- NOTE | 2019-01-07 15:56 | P.PN ---
Subjective Date of Service: 01/07/19 Primary Care Provider: Dr. Gutierrez Chief Complaint: Respiratory failure, dysphagia, aspiration pneumonia b/ Subjective: Improving (Sitting up in bed, talking to daughter. Tolerating TFs. Grossly failed modified barium swallow on 01-04-19 with noted aspiration on testing.) Review of Systems 10-point ROS is otherwise unremarkable General: Weakness (Improved.) Physical Examination - Vital Signs Temperature: 98 F Blood Pressure: 141/49 Pulse: 76 Respirations: 17 Pulse Ox (%): 96 - Physical Exam General: Alert, In no apparent distress, Oriented x2, Cooperative HEENT: Atraumatic, Normocephalic, PERRLA, EOMI Neck: Supple Respiratory: Normal air movement Cardiovascular: Normal pulses Gastrointestinal: Soft and benign, No tenderness, No rebound, No guarding - Studies Medications List Reviewed: Yes Assessment And Plan - Current Problems (Diagnosis) (1) Aspiration pneumonia Current Visit: Yes Status: Acute Qualifiers: Laterality: bilateral (2) Hypernatremia Current Visit: Yes Status: Acute (3) Respiratory failure Current Visit: Yes Status: Resolved Qualifiers: Chronicity: acute - Plan REC: 1) increase TFs to 50 cc/hour 2) check pre-albumin next week
[2019-01-07] MEDS: CLOZAPINE PO SCH (17:01)
[2019-01-07] MEDS: TAMSULOSIN 0.4 MG SR CAP PO SCH (21:00)
[2019-01-07] MEDS: GLUCERNA 1.2 CAL 1,000 ML BOT FT SCH (23:09)
[2019-01-08] MEDS: HOME MED 1 EA UNK TOP SCH (09:00)
[2019-01-08] MEDS: CITALOPRAM 10 MG TABLET PO SCH (09:41)
[2019-01-08] MEDS: NYSTATIN 500,000 UNIT/5 ML UDC PO SCH ×4 (09:42→20:16)
[2019-01-08] MEDS: LOSARTAN POTASSIUM 50 MG TABLET PO SCH (09:42)
[2019-01-08] MEDS: ENOXAPARIN 30 MG/0.3 ML SQ SCH (09:42)
--- NOTE | 2019-01-08 14:34 | P.PN ---
Subjective Date of Service: 01/08/19 Primary Care Provider: Dr. Gutierrez Chief Complaint: Respiratory failure, dysphagia, aspiration pneumonia b/ Subjective: Improving HE NOW IS EXTUBATED. STILL VERY WEAK, FOLLOWS WITH HIS HEAD SLOWLY, DOES NOT TALK MUCH. HE HAS SIGNIFICANT DEMENTIA FROM PARKINSON'S VERY WEAK, BED BOUND. NO CHANGES. BED BOUND. NOT MOVING MUCH. WEAK, FRAIL, BED BOUND,MAINLY NOT MOBILE. VERY WEAK BUT AWAKE AND RESPONDS. Review of Systems 10-point ROS is otherwise unremarkable General: Weakness, Malaise Physical Examination - Vital Signs Temperature: 98.2 F Blood Pressure: 147/65 Pulse: 75 Respirations: 18 Pulse Ox (%): 94 - Physical Exam General: Cachectic, Mild distress, Moderate distress HEENT: Atraumatic, PERRLA, EOMI Neck: Supple, JVD not distended Respiratory: Clear to auscultation bilaterally, Normal air movement Cardiovascular: Regular rate/rhythm, Normal S1 S2 Gastrointestinal: Normal bowel sounds, No tenderness Musculoskeletal: No tenderness Integumentary: No rashes Neurological: Dementia Lymphatics: No axilla or inguinal lymphadenopathy - Studies Medications List Reviewed: Yes Assessment And Plan - Current Problems (Diagnosis) (1) Aspiration pneumonia Current Visit: Yes Status: Acute Plan: ABX MANAGED BY DR SAAB. HE FAILED BARIUM MOD TEST. NPO FROM NOW ON. G TUBE FED HEHAS NOT WANTED ANY LIFESUPPORT PER WILL BUT FAMILY OVERTURNED HIS WILL. THEY NOW DO NOT WANT ANY RESUSCITATION. Qualifiers: Laterality: bilateral (2) Severe major neurocognitive disorder probably due to Parkinson's disease, with behavioral disturbance Current Visit: Yes Status: Chronic Plan: END STAGE. TALKED TO . I ADVISE [facility]. HE WILL NOT TOLERATE REHAB- 3 HOURS OF PT DAILY. SHE UNDERSTANDS. I ADVISE HOSPICE AGAIN BUT SHE WANTS TO WAIT COUPLE OF WEEKS. HE IS SEVERELY CACHECTIC, PD PATIENT. IDEALLY HE SHOULD BE BACK ON HOSPICE. HE HAS END STAGE PARKSINSON'S HE IS BEDBOUND, FED BY G TUBE. DONE ALL THESE FAMILY WAS NOT READY FOR HIM TO [facility] HE IS STILL IN THE SAME END STAGE CONDITION. NOW DNR PER FAMILY'S WISH. HE HAS DNR STATUS BY HIS WISH FOR LONG DURATION. BED BOUND. HE WILL GO TO NH IF APPROVED. HE WAS WALKING BEFORE BUT UNSTEADY. FAMILY UNDERSTANDS BUT DAUGHTER PROBABLY HAS UNREALISTIC EXPECTATIONS. END STAGE PD. NH SOON. STABLE WITH POOR PROGNOSIS (3) Atherosclerotic PVD with ulceration Current Visit: Yes Status: Chronic Plan: INOPERABLE. RESUME COMFORT CARE. MEDICALLY UNSTABLE. ULCER HAS HEALED. PVD CONTINUES. Qualifiers: Peripheral atherosclerosis location: lower extremity Peripheral atherosclerosis artery type: [place] artery Laterality: unspecified laterality Lower extremity ulceration location: heel Qualified Code(s): I70.25 - Atherosclerosis of [place] arteries of other extremities with ulceration (4) Respiratory failure Current Visit: Yes Status: Resolved Plan: DR. SAAB IS MANAGING THIS. EXUBATION PROCEDURES. MAY NOT BE ABLE TO WEANOFF. EVEN IF HE WEANS OFF, HE MAY NOT BE ABLE TO SURVIVE FOR LONG HE IS SEVERELY AFFECTED FROM PARKSION'S DISEASE. Qualifiers: Chronicity: acute
[2019-01-08] MEDS: CLOZAPINE 50 MG PO SCH (16:48)
[2019-01-08] MEDS ORDERED: CLOZAPINE 50 MG PO SCH (17:00)
[2019-01-08] MEDS: TAMSULOSIN 0.4 MG SR CAP PO SCH (20:16)
[2019-01-09] MEDS: NYSTATIN 500,000 UNIT/5 ML UDC PO SCH ×4 (09:45→22:21)
[2019-01-09] MEDS: LOSARTAN POTASSIUM 50 MG TABLET PO SCH (09:45)
[2019-01-09] MEDS: CITALOPRAM 10 MG TABLET PO SCH (09:45)
[2019-01-09] MEDS: ENOXAPARIN 30 MG/0.3 ML SQ SCH (09:47)
[2019-01-09] MEDS: CLOZAPINE 50 MG PO SCH (17:28)
[2019-01-09] MEDS: TAMSULOSIN 0.4 MG SR CAP PO SCH (21:00)
--- NOTE | 2019-01-09 21:01 | P.PN ---
Subjective Date of Service: 01/09/19 Primary Care Provider: Dr. Gutierrez Chief Complaint: Respiratory failure, dysphagia, aspiration pneumonia b/ Subjective: No new changes HE NOW IS EXTUBATED. STILL VERY WEAK, FOLLOWS WITH HIS HEAD SLOWLY, DOES NOT TALK MUCH. HE HAS SIGNIFICANT DEMENTIA FROM PARKINSON'S VERY WEAK, BED BOUND. NO CHANGES. BED BOUND. NOT MOVING MUCH. WEAK, FRAIL, BED BOUND,MAINLY NOT MOBILE. VERY WEAK BUT AWAKE AND RESPONDS. HE IS WEAK, AND BED BOUND, RESPONDS TO COMMAND BUT VERY SLOW. Review of Systems 10-point ROS is otherwise unremarkable General: Weakness, Malaise Physical Examination - Vital Signs Temperature: 99 F Blood Pressure: 189/80 Pulse: 80 Respirations: 18 Pulse Ox (%): 97 - Physical Exam General: Alert, Cachectic, Mild distress, Confused HEENT: Atraumatic, PERRLA, EOMI Neck: Supple, JVD not distended Respiratory: Clear to auscultation bilaterally, Normal air movement Cardiovascular: Regular rate/rhythm, Normal S1 S2 Gastrointestinal: Normal bowel sounds, No tenderness Musculoskeletal: No tenderness Integumentary: No rashes Neurological: Normal speech, Normal tone, Normal affect Lymphatics: No axilla or inguinal lymphadenopathy - Studies Medications List Reviewed: Yes Assessment And Plan - Current Problems (Diagnosis) (1) Aspiration pneumonia Current Visit: Yes Status: Acute Plan: ABX MANAGED BY DR SAAB. HE FAILED BARIUM MOD TEST. NPO FROM NOW ON. G TUBE FED HEHAS NOT WANTED ANY LIFESUPPORT PER WILL BUT FAMILY OVERTURNED HIS WILL. THEY NOW DO NOT WANT ANY RESUSCITATION. Qualifiers: Laterality: bilateral (2) Severe major neurocognitive disorder probably due to Parkinson's disease, with behavioral disturbance Current Visit: Yes Status: Chronic Plan: END STAGE. TALKED TO . I ADVISE [facility]. HE WILL NOT TOLERATE REHAB- 3 HOURS OF PT DAILY. SHE UNDERSTANDS. I ADVISE HOSPICE AGAIN BUT SHE WANTS TO WAIT COUPLE OF WEEKS. HE IS SEVERELY CACHECTIC, PD PATIENT. IDEALLY HE SHOULD BE BACK ON HOSPICE. HE HAS END STAGE PARKSINSON'S HE IS BEDBOUND, FED BY G TUBE. DONE ALL THESE FAMILY WAS NOT READY FOR HIM TO [facility] HE IS STILL IN THE SAME END STAGE CONDITION. NOW DNR PER FAMILY'S WISH. HE HAS DNR STATUS BY HIS WISH FOR LONG DURATION. BED BOUND. HE WILL GO TO NH IF APPROVED. HE WAS WALKING BEFORE BUT UNSTEADY. FAMILY UNDERSTANDS BUT DAUGHTER PROBABLY HAS UNREALISTIC EXPECTATIONS. END STAGE PD. NH SOON. STABLE WITH POOR PROGNOSIS ON CLOZAPINE FOR AGITATION FROM DR. MCCORMACK. (3) Atherosclerotic PVD with ulceration Current Visit: Yes Status: Chronic Plan: INOPERABLE. RESUME COMFORT CARE. MEDICALLY UNSTABLE. ULCER HAS HEALED. PVD CONTINUES. Qualifiers: Peripheral atherosclerosis location: lower extremity Peripheral atherosclerosis artery type: [place] artery Laterality: unspecified laterality Lower extremity ulceration location: heel Qualified Code(s): I70.25 - Atherosclerosis of [place] arteries of other extremities with ulceration (4) Respiratory failure Current Visit: Yes Status: Resolved Plan: DR. SAAB IS MANAGING THIS. EXUBATION PROCEDURES. MAY NOT BE ABLE TO WEANOFF. EVEN IF HE WEANS OFF, HE MAY NOT BE ABLE TO SURVIVE FOR LONG HE IS SEVERELY AFFECTED FROM PARKSION'S DISEASE. Qualifiers: Chronicity: acute (5) Hematuria Current Visit: Yes Status: Acute Plan: FROM [facility]. ALYSSA NUNEZ. CHANGE TO [facility]DOM CATHETER.
[2019-01-09] MEDS: GLUCERNA 1.2 CAL 1,000 ML BOT FT SCH (23:15)
[2019-01-10] MEDS: ENOXAPARIN 30 MG/0.3 ML SQ SCH (08:51)
[2019-01-10] MEDS: CITALOPRAM 10 MG TABLET PO SCH (08:51)
[2019-01-10] MEDS: NYSTATIN 500,000 UNIT/5 ML UDC PO SCH ×4 (08:51→21:39)
[2019-01-10] MEDS: LOSARTAN POTASSIUM 50 MG TABLET PO SCH (08:51)
[2019-01-10] MEDS: CLOZAPINE 50 MG PO SCH (17:15)
--- NOTE | 2019-01-10 20:03 | P.PN ---
Subjective Date of Service: 01/10/19 Primary Care Provider: Dr. Gutierrez Chief Complaint: SEVERE END STAGE PARKINSON'S Subjective: Worsening HE NOW IS EXTUBATED. STILL VERY WEAK, FOLLOWS WITH HIS HEAD SLOWLY, DOES NOT TALK MUCH. HE HAS SIGNIFICANT DEMENTIA FROM PARKINSON'S VERY WEAK, BED BOUND. NO CHANGES. BED BOUND. NOT MOVING MUCH. WEAK, FRAIL, BED BOUND,MAINLY NOT MOBILE. VERY WEAK BUT AWAKE AND RESPONDS. HE IS WEAK, AND BED BOUND, RESPONDS TO COMMAND BUT VERY SLOW. MR ALFONSO HAS SEVERE PARKINSON'S. HE IS NON VERBAL MOST OF THE TIME. Review of Systems is unable to be obtained Physical Examination - Vital Signs Temperature: 98.8 F Blood Pressure: 130/63 Pulse: 91 Respirations: 18 Pulse Ox (%): 92 - Physical Exam General: Alert, Cachectic, Mild distress, Confused HEENT: Atraumatic, PERRLA, EOMI Neck: Supple, JVD not distended Respiratory: Clear to auscultation bilaterally, Normal air movement Cardiovascular: Regular rate/rhythm, Normal S1 S2 Gastrointestinal: Normal bowel sounds, No tenderness Musculoskeletal: No tenderness Integumentary: No rashes Neurological: Normal speech, Normal tone, Normal affect Lymphatics: No axilla or inguinal lymphadenopathy - Studies Medications List Reviewed: Yes Assessment And Plan - Current Problems (Diagnosis) (1) Aspiration pneumonia Current Visit: Yes Status: Acute Plan: ABX MANAGED BY DR SAAB. HE FAILED BARIUM MOD TEST. NPO FROM NOW ON. G TUBE FED HEHAS NOT WANTED ANY LIFESUPPORT PER WILL BUT FAMILY OVERTURNED HIS WILL. THEY NOW DO NOT WANT ANY RESUSCITATION. Qualifiers: Laterality: bilateral (2) Severe major neurocognitive disorder probably due to Parkinson's disease, with behavioral disturbance Current Visit: Yes Status: Chronic Plan: END STAGE. TALKED TO . I ADVISE [facility]. HE WILL NOT TOLERATE REHAB- 3 HOURS OF PT DAILY. SHE UNDERSTANDS. I ADVISE HOSPICE AGAIN BUT SHE WANTS TO WAIT COUPLE OF WEEKS. HE IS SEVERELY CACHECTIC, PD PATIENT. IDEALLY HE SHOULD BE BACK ON HOSPICE. HE HAS END STAGE PARKSINSON'S HE IS BEDBOUND, FED BY G TUBE. DONE ALL THESE FAMILY WAS NOT READY FOR HIM TO [facility] HE IS STILL IN THE SAME END STAGE CONDITION. NOW DNR PER FAMILY'S WISH. HE HAS DNR STATUS BY HIS WISH FOR LONG DURATION. BED BOUND. HE WILL GO TO [place] IF APPROVED. HE WAS WALKING BEFORE BUT UNSTEADY. FAMILY UNDERSTANDS BUT DAUGHTER PROBABLY HAS UNREALISTIC EXPECTATIONS. END STAGE PD. [place] SOON. STABLE WITH POOR PROGNOSIS ON CLOZAPINE FOR AGITATION FROM DR. MCCORMACK. WE ARE WAITING FOR [place] APPROVAL FOR DAYS NOW. HE CAN'T GO HOME FROM HERE. THAT WILL BE VERY DIFFICULT FOR HIM. (3) Atherosclerotic PVD with ulceration Current Visit: Yes Status: Chronic Plan: INOPERABLE. RESUME COMFORT CARE. MEDICALLY UNSTABLE. ULCER HAS HEALED. PVD CONTINUES. Qualifiers: Peripheral atherosclerosis location: lower extremity Peripheral atherosclerosis artery type: [place] artery Laterality: unspecified laterality Lower extremity ulceration location: heel Qualified Code(s): I70.25 - Atherosclerosis of [place] arteries of other extremities with ulceration (4) Respiratory failure Current Visit: Yes Status: Resolved Plan: DR. SAAB IS MANAGING THIS. EXUBATION PROCEDURES. MAY NOT BE ABLE TO WEANOFF. EVEN IF HE WEANS OFF, HE MAY NOT BE ABLE TO SURVIVE FOR LONG HE IS SEVERELY AFFECTED FROM PARKSION'S DISEASE. Qualifiers: Chronicity: acute (5) Hematuria Current Visit: Yes Status: Acute Plan: FROM [facility]. ALYSSA NUNEZ. CHANGE TO CONDOM CATHETER.
[2019-01-10] MEDS: TAMSULOSIN 0.4 MG SR CAP PO SCH (21:00)
[2019-01-10] MEDS: GLUCERNA 1.2 CAL 1,000 ML BOT FT SCH (21:39)
[2019-01-10] MEDS ORDERED: NA CHLORIDE 0.9% 0 ML ONE (23:56)
[2019-01-11] MEDS: ENOXAPARIN 30 MG/0.3 ML SQ SCH (08:33)
[2019-01-11] MEDS: NYSTATIN 500,000 UNIT/5 ML UDC PO SCH ×3 (08:33→16:50)
[2019-01-11] MEDS: CITALOPRAM 10 MG TABLET PO SCH (08:34)
[2019-01-11] MEDS: LOSARTAN POTASSIUM 50 MG TABLET PO SCH (08:34)
[2019-01-11 09:52] VITALS: O2SAT 96
[2019-01-11] MEDS: CLOZAPINE 50 MG PO SCH ×2 (17:00→17:43)
[2019-01-11 17:56] VITALS: BP 191/77; TEMP 98.6
[2019-01-11] MEDS: GLUCERNA 1.2 CAL 1,000 ML BOT FT SCH (19:08)
--- NOTE | 2019-01-14 10:54 | P.DS ---
Admission Date: 12/28/18 Discharge Date: 01/14/19 Primary Care Provider: Dr. 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 ALFONSO IS END STAGE PARKINSON'S PATIENT WITH SEVERE DEMENTIA AND PREGANGERNOUS HEEL ULCER WAS BROUGHT BY FAMILY FOR DYSPNEA. TWO WEEKS OR SO AGO I HAD PLACED HIM ON HOSPICE I SAW PREGANGRENOUS ULCER COMING UP WITH PVD , WORSE CACHEXIA AND DEMENTIA FROM PARKINSON'S. AT THAT TIME WAS OKAY WITH KEEPING HIM COMFORTABLE AND AVOIDING HEROIC MEASURES. HE STARTED WITH DYSPNEA AND FEVER TWO DAYS AGO, HE WAS GIVEN ORAL ANTIBIOTICS. DAUGHTERS DECIDED TO REVOKE HOSPICE AND BRING HIM TO ER. HE WAS INTUBATED AND HAS ASPIRATION PNEUMONIA. ER GAVE HIM CEFEPIME AND LEVAQUIN. I ASKED DR. FIGUEROA TO GIVE ZOSYN FOR ASPIRATION PNEUMONIA. I SAW HIM THIS AM ABOUT 8. HE IS INTUBATED AND STABLE. FAMILY DECIDED TO PUT HIM BACK ON HOSPICE AFTER FAILURE TO RECOVER FROM CHRONIC STATUS. HE IMPROVED FROM PNEUMONIA BUT HIS BODY IS FAILING TO RECOVER AND UNDERSTANDS. SHE IS THE ONE DECIDED TO GET HELP FOR HER WHO IS SEVERELY CACHECTIC PARKINSON'S PATIENT WHO CAN'T WALK OR EAT ANY LONGER. Vital Signs/Physical Exam: Temp Pulse Resp BP Pulse Ox 98.6 F 84 17 191/77 H 97 01/11/19 16:00 01/11/19 16:00 01/11/19 16:00 01/11/19 16:00 01/11/19 16:00 General: Cachectic HEENT: Atraumatic, PERRLA, EOMI Neck: Supple, JVD not distended Respiratory: Diminished Cardiovascular: Regular rate/rhythm, Normal S1 S2 Gastrointestinal: Normal bowel sounds, No tenderness Musculoskeletal: No tenderness Integumentary: No rashes Neurological: Other (VERY WEAK, NOT ABLE TO RECOGNIZE PEOPLE, BARELY WAKES UP.) , Abnormal speech Lymphatics: No axilla or inguinal lymphadenopathy Laboratory Data at Discharge: WBC 9.0 K/uL (4.3-10.9) 01/03/19 04:40 Hgb 9.8 g/dL (13.6-17.9) L 01/03/19 04:40 Hct 29.2 % (39.6-49.0) L 01/03/19 04:40 Plt Count 151 K/uL (152-406) L D 01/03/19 04:40 PT 15.2 SECONDS (9.5-12.5) H 12/28/18 19:00 INR 1.30 12/28/18 19:00 APTT 26.1 SECONDS (24.3-36.9) 12/28/18 19:00 Sodium 143 mmol/L (136-145) 01/03/19 04:40 Potassium 3.9 mmol/L (3.5-5.1) 01/03/19 04:40 BUN 14 mg/dL (7-18) 01/03/19 04:40 Creatinine 0.48 mg/dL (0.55-1.3) L 01/03/19 04:40 Glucose 85 mg/dL (74-106) 01/03/19 04:40 Magnesium 2.6 mg/dL (1.8-2.4) H 12/28/18 19:00 Total Bilirubin 0.9 mg/dL (0.2-1.0) 12/28/18 19:00 AST 38 U/L (15-37) H 12/28/18 19:00 ALT 48 U/L (12-78) 12/28/18 19:00 Alkaline Phosphatase 94 U/L (45-117) 12/28/18 19:00 Troponin I 0.27 ng/mL (0.0-0.045) H 12/29/18 04:55 Lipase 146 U/L (73-393) 12/28/18 19:00 Home Medications: Citalopram Hydrobromide [Citalopram HBr] 40 mg PO DAILY 12/29/18 Fluticasone [Flonase 50MCG Nasal [place]*] 2 sprays NS DAILY 12/29/18 Nystatin 100,000 unit PO QID 12/29/18 Tamsulosin HCl 1 cap PO BEDTIME 12/29/18 Clozapine 50 mg PO 1700 01/10/19 Losartan Potassium [Cozaar*] 50 mg PO DAILY tablet 01/10/19
== END 2019-01-11 20:15 | disposition hospice, home (50) | DRG 870 ==
LOC: ER 18:24 → ERHOLD 20:49 → 3RD-ICU 21:37 → 2ND 01-04 11:59
PROVIDERS: ADMIT Internal Medicine; ATTEND Internal Medicine
PROC: 0BH17EZ Insertion of Endotracheal Airway into Trachea, Via Natural or Artificial Opening (ICD-10-PCS; principal; 2018-12-28)
PROC: 5A1955Z Respiratory Ventilation, Greater than 96 Consecutive Hours (ICD-10-PCS; 2018-12-28)
PROC: 02HV33Z Insertion of Infusion Device into Superior Vena Cava, Percutaneous Approach (ICD-10-PCS; 2018-12-31)
PROC: 0DH63UZ Insertion of Feeding Device into Stomach, Percutaneous Approach (ICD-10-PCS; 2019-01-02)
PROC: 0DB68ZX Excision of Stomach, Via Natural or Artificial Opening Endoscopic, Diagnostic (ICD-10-PCS; 2019-01-02)
DX: A41.9 Sepsis, unspecified organism (principal); J69.0 Pneumonitis due to inhalation of food and vomit; J96.00 Acute respiratory failure, unspecified whether with hypoxia or hypercapnia; E43 Unspecified severe protein-calorie malnutrition; J91.8 Pleural effusion in other conditions classified elsewhere; F02.81 Dementia in other diseases classified elsewhere, unspecified severity, with behavioral disturbance; I70.269 Atherosclerosis of native arteries of extremities with gangrene, unspecified extremity; E87.0 Hyperosmolality and hypernatremia; Z68.1 Body mass index [BMI] 19.9 or less, adult; R13.10 Dysphagia, unspecified; Z66 Do not resuscitate; G20 Parkinson's disease; I10 Essential (primary) hypertension; L89.621 Pressure ulcer of left heel, stage 1; L89.611 Pressure ulcer of right heel, stage 1; K29.70 Gastritis, unspecified, without bleeding; K44.9 Diaphragmatic hernia without obstruction or gangrene; N40.0 Benign prostatic hyperplasia without lower urinary tract symptoms; R31.9 Hematuria, unspecified; Z74.01 Bed confinement status; Z85.46 Personal history of malignant neoplasm of prostate
CPT/HCPCS: 31500; 36415; 51702; 70450; 71045; 71250; 74176; 74230; 80048; 80076; 80202; 81003; 81015; 82040; 82805; 82962; 83605; 83690; 83735; 83880; 84134; 84145; 84443; 84484; 85025; 85610; 85730; 87040; 87070; 87086; 87088; 87205; 87493; 88305; 88312; 92526; 92611; 93005; 94002; 94003; 94640; 94760; 97110; 97112; 97163; 97530; 99291; 99292; J0330; J0692; J1650; J2250; J2543; J2704; J3370; J7030